=== PATIENT | female | born 1950 | race Caucasian/White ===

== ENCOUNTER → 2016-09-04 | Day surgery (SDC) | payer BC, MEDICARE ==
[2016-09-02 14:13] VITALS: BMI 30.2
[~2016-09-04] MED LIST: LACTATED RINGERS 1,000 ML IV SCH; LIDOCAINE 1% INJ 10MG/ML (20 ML MDV) ONE; PROPOFOL 10 MG/ML 20 ML VIAL IV ONE; ePHEDrine 50 MG/ML 1 ML AMP ONE
[2016-09-04 09:19] VITALS: RESP 16; TEMP 97.9
--- NOTE | 2016-09-04 10:17 | P.GSHP ---
History of Present Illness H&P Date: 09/04/16 Chief Complaint: GERD, screening colonoscopy This is a 65-year-old female for from Dr. Flaquito Stanford. Patient is today for EGD and screening colonoscopy. She's had issues with GERD. She's never had a colonoscopy before. Past Medical History Past Medical History: COPD, GERD/Reflux, Hyperlipidemia, Hypertension, Osteoarthritis (OA) Additional Past Medical History / Comment(s): HEART MURMUR, HX OF "DUODENAL ULCER" , ARTHRITIS WITH BACK PAIN., History of Any Multi-Drug Resistant Organisms: None Reported Past Surgical History: Section Additional Past Surgical History / Comment(s): X3, RT KIDNEY REPAIR ( 27 YRS OLD), BILAT CATARACTS. SIGMOIDOSCOPY, EGD Past Anesthesia/Blood Transfusion Reactions: No Reported Reaction Smoking Status: Heavy tobacco smoker - Past Family History Mother Family Medical History: No Reported History Medications and Allergies Home Medications Medication Instructions Recorded Confirmed Type Gemfibrozil [Lopid] 600 mg PO BID 11/29/15 09/04/16 History Hydrocodone/Acetaminophen [Vicodin 1 tab PO Q8HR PRN 11/29/15 09/04/16 History Es 7.5-300 mg Tablet] Lisinopril-Hctz 20-12.5 mg 1 tab PO DAILY 11/29/15 09/04/16 History [Zestoretic 20-12.5] Omeprazole 40 mg PO DAILY 11/29/15 09/04/16 History Simvastatin [Zocor] 20 mg PO HS 11/29/15 09/04/16 History buPROPion XL [Wellbutrin Xl] 300 mg PO DAILY 11/29/15 09/04/16 History Allergies Allergy/AdvReac Type Severity Reaction Status Date / Time Penicillins Allergy Unknown Swelling Verified 09/04/16 09:14 Surgical - Exam Vital Signs Temp Pulse Resp BP Pulse Ox 97.9 F 79 16 95/63 96 09/04/16 09:17 09/04/16 09:17 09/04/16 09:17 09/04/16 09:17 09/04/16 09:17 - General well developed, no distress - Eyes PERRL - ENT normal pinna - Neck no masses - Respiratory normal expansion - Cardiovascular Rhythm: regular - Abdomen Abdomen: soft, non tender Assessment and Plan Plan: GERD. We'll perform EGD. We'll also perform initial screening colonoscopy.
--- NOTE | 2016-09-04 10:35 | P.OP ---
Date of Procedure: 09/04/16 Preoperative Diagnosis: GERD Screening colonoscopy Postoperative Diagnosis: Antral gastritis Small hiatal hernia Distal esophagitis Incomplete colonoscopy secondary to tortuosity bowel, normal rectum and distal sigmoid colon Procedure(s) Performed: Colonoscopy Implants: Anesthesia: MAC Surgeon: Duglas Man Pathology: other (Antrum, esophagus) Condition: stable Disposition: PACU Indications for Procedure: Operative Findings: Description of Procedure: The patient's placed on the endoscopy table in the lateral position. She received IV sedation. The gastroscope some placed oropharynx and passed into the esophagus into the stomach. The scope was then placed through the pylorus. First and second portion of the duodenum appeared normal. Scope was then brought back the antrum and this was mildly inflamed. A biopsies performed. Scope was unretroflexed and remainder of the stomach appeared normal. There was a small hiatal hernia. The GE junction was at 38 cm. The distal esophagus. Inflamed this area is biopsied. The proximal esophagus. Normal. Scope withdrawn for patient. Next digital rectal exam was performed and the flexible colonoscope was then placed patient anus and passed into the rectum and into the distal sigmoid colon. The scope could not be passed beyond the distal sigmoid colon secondary to tortuosity valve. At this point the scope was withdrawn and a pediatric scope was placed the patient's colon however this was not able to pass the tight band of the sigmoid colon. At this point the scope was withdrawn. The remainder of the distal sigmoid colon and rectum appeared normal. Scope was withdrawn for patient. The patient was scheduled for a barium enema.
[2016-09-04 11:32] VITALS: BP 112/68; PULSE 72
--- NOTE | 2016-09-04 11:47 | XR ---
EXAMINATION TYPE: XR abdomen 1V DATE OF EXAM: 09/04/2016 COMPARISON: NONE HISTORY: Failed colonoscopy TECHNIQUE: One view abdominal series FINDINGS: The osseous structures are intact. The bowel gas pattern is nonspecific. Assessment for free air non diagnostic due to lack of inclusion of the entire upper abdomen. Arthropathy of the hips and degenera tive change of the spine. Vascular calcifications noted soft tissue ossification or calcification adj acent to the iliac bone.. IMPRESSION: 1. Nonspecific abdomen.
--- NOTE | 2016-09-04 13:59 | FL ---
EXAMINATION TYPE: FL barium enema DATE OF EXAM: 09/04/2016 COMPARISON: NONE HISTORY: Incomplete colonoscopy TECHNIQUE: A double contrast barium enema study is performed. FINDINGS: Equipment Installation Professional view of the abdomen shows overall non-obstructive bowel gas pattern. Exam is limited with regard to the right colon due to suboptimal bowel preparation. There is focal area of narrowing involving the sigmoid colon with severe diverticular disease. Additi onal areas of scattered diverticulosis are seen throughout the colon. Retained fecal debris limits as sessment for small polyps. No evidence of obstruction. No annular constricting lesion. Appendix was filled and appeared normal. IMPRESSION: 1. Limited exam due to suboptimal bowel preparation. Assessment for small polyps nondiagnostic. A loc alized area of narrowing of the sigmoid colon with severe changes of diverticular disease. Correlate clinically.
== END ==
LOC: ORWHC2ENDO 09:03
PROVIDERS: ATTEND Surgery
DX: Z12.11 Encounter for screening for malignant neoplasm of colon (principal); Q43.8 Other specified congenital malformations of intestine; K29.50 Unspecified chronic gastritis without bleeding; K21.0 Gastro-esophageal reflux disease with esophagitis; K44.9 Diaphragmatic hernia without obstruction or gangrene; K57.30 Diverticulosis of large intestine without perforation or abscess without bleeding; J44.9 Chronic obstructive pulmonary disease, unspecified; E78.5 Hyperlipidemia, unspecified; I10 Essential (primary) hypertension; M19.90 Unspecified osteoarthritis, unspecified site; F17.200 Nicotine dependence, unspecified, uncomplicated; Z79.899 Other long term (current) drug therapy; Z88.0 Allergy status to penicillin
CPT/HCPCS: 88305; 88342; 74270; 74000; 43239; 45330; J2001; J2704

== ENCOUNTER → 2016-10-02 | Outpatient (CLI) | payer BC, MEDICARE ==
[2016-10-02 11:54] LABS: EKG EKG PERFORMED
[2016-10-02 12:14] LABS: Anisocytosis Slight; CH 26.4; HCT 35.5 % (34.0-46.0); HDW 2.91; HGB 10.7 gm/dL (11.4-16.0); Hypochromasia Marked; MCH 26.6 pg (25.0-35.0); MCHC 30.1 g/dL (31.0-37.0); MCV 88.2 fL (80.0-100.0); Mean Platelet Volume 7.1; RBC 4.03 m/uL (3.80-5.40); RDW 17.9 % (11.5-15.5); WBC 6.9 k/uL (3.8-10.6)
[2016-10-02 12:34] LABS: Anion Gap 13 mmol/L; Carbon Dioxide 20 mmol/L (22-30); Chloride 106 mmol/L (98-107); Potassium 4.1 mmol/L (3.5-5.1); Sodium 139 mmol/L (137-145)
== END | disposition home or self-care (01) ==
LOC: LABPAT 11:45
PROVIDERS: ATTEND Surgery
DX: Z01.810 Encounter for preprocedural cardiovascular examination (principal); I10 Essential (primary) hypertension; K57.90 Diverticulosis of intestine, part unspecified, without perforation or abscess without bleeding
CPT/HCPCS: 80051; 85027; 86850; 86900; 86901; 93005

== ENCOUNTER 2016-10-09 10:35 | Inpatient (IN) | payer BC, MEDICARE ==
[2016-09-30 10:56] VITALS: BMI 21.9
[~2016-10-09 10:35] MED LIST changes: +CLINDAMYCIN 900 MG in DEXTROSE 5% IN WATER 50 ML IVPB ONE; +DEXAMETHASONE SOD PHOSPHATE 10 MG/ML 1 ML VIAL IV ONE; +GENTAMICIN 240 MG in SODIUM CHLORIDE 0.9% 100 ML IVPB ONE; +HEPARIN SODIUM,PORCINE 5,000 UNIT/ML 1 ML VIAL SQ ONE; +HYDROmorphone 1 MG/ML 1 ML SYRINGE IVP PRN; -LACTATED RINGERS 1,000 ML IV SCH; -LIDOCAINE 1% INJ 10MG/ML (20 ML MDV) ONE; +MIDAZOLAM 2 MG/2 ML VIAL IV PRN; +ONDANSETRON 4 MG/2 ML VIAL IVP ONE; -PROPOFOL 10 MG/ML 20 ML VIAL IV ONE; -ePHEDrine 50 MG/ML 1 ML AMP ONE
[2016-10-09] MEDS: LACTATED RINGERS 1,000 ML IV SCH (12:26)
--- NOTE | 2016-10-09 12:27 | P.GSHP ---
History of Present Illness H&P Date: 10/09/16 Chief Complaint: Diverticulitis This is a 58-year-old female who's had chronic issues with diverticulitis. Patient presents today for low anterior resection. She is aware the risks of surgery including wound infection, colostomy Past Medical History Past Medical History: COPD, GERD/Reflux, Hyperlipidemia, Hypertension, Musculoskeletal Disorder, Osteoarthritis (OA) Additional Past Medical History / Comment(s): HEART MURMUR. HX OF "DUODENAL ULCER." DIVERTICULITIS. CHRONIC BACK PAIN. HX DB KIDNEY, 1 REMOVED. History of Any Multi-Drug Resistant Organisms: None Reported Past Surgical History: Section Additional Past Surgical History / Comment(s): X3. RT KIDNEY REPAIR ( 27 YRS OLD). BILAT CATARACTS. SIGMOIDOSCOPY, EGD Past Anesthesia/Blood Transfusion Reactions: No Reported Reaction Smoking Status: Current every day smoker - Past Family History Mother Family Medical History: No Reported History Medications and Allergies Home Medications Medication Instructions Recorded Confirmed Type Gemfibrozil [Lopid] 600 mg PO BID 11/29/15 10/09/16 History Hydrocodone/Acetaminophen [Vicodin 1 tab PO Q8HR PRN 11/29/15 10/09/16 History Es 7.5-300 mg Tablet] Lisinopril-Hctz 20-12.5 mg 1 tab PO DAILY 11/29/15 10/09/16 History [Zestoretic 20-12.5] Omeprazole 40 mg PO DAILY 11/29/15 10/09/16 History Simvastatin [Zocor] 20 mg PO HS 11/29/15 10/09/16 History buPROPion XL [Wellbutrin Xl] 300 mg PO DAILY 11/29/15 10/09/16 History Albuterol Sulfate [Proventil Hfa] 1 - 2 puff INHALATION Q6HR PRN 09/30/16 History Krill/Om-3/Dha/Epa/Phospho/Ast 1 each PO DAILY 09/30/16 10/09/16 History [[place]-3 Krill Oil 300 mg Sfgl] Pseudoephedrine [Sudafed] 30 - 60 mg PO Q4H PRN 09/30/16 10/09/16 History Allergies Allergy/AdvReac Type Severity Reaction Status Date / Time Penicillins Allergy Unknown Swelling Verified 09/30/16 10:19 Surgical - Exam Vital Signs Temp Pulse Resp BP Pulse Ox 98.4 F 85 20 141/69 100 10/09/16 12:07 10/09/16 12:07 10/09/16 12:07 10/09/16 12:07 10/09/16 12:07 - General well developed, no distress - Eyes PERRL - ENT normal pinna - Neck no masses - Respiratory normal expansion - Cardiovascular Rhythm: regular - Abdomen Abdomen: soft, non tender Assessment and Plan Plan: Diverticulitis. We will perform a low anterior resection
[2016-10-09] MEDS ORDERED: fentaNYL (PF) 50 MCG/ML 2 ML AMP IV ONE (12:40)
[2016-10-09] MEDS ORDERED: NALOXONE 0.4 MG/ML 1 ML VIAL IV PRN (12:54)
[2016-10-09] MEDS ORDERED: GLYCOPYRROLATE 0.2 MG/ML 2 ML VIAL ONE (13:18)
[2016-10-09] MEDS ORDERED: PHENYLEPHRINE-0.9% NACL SYG 1 MG/10 ML SYRINGE ONE (13:18)
[2016-10-09] MEDS ORDERED: ROCURONIUM BROMIDE 10 MG/ML 10 ML VIAL IV ONE (13:18)
[2016-10-09] MEDS ORDERED: fentaNYL (PF) 50 MCG/ML 2 ML AMP ONE (13:18)
[2016-10-09] MEDS ORDERED: NEOSTIGMINE 1 MG/ML 10 ML VIAL ONE (13:18)
[2016-10-09] MEDS ORDERED: PROPOFOL 10 MG/ML 20 ML VIAL IV ONE (13:18)
[2016-10-09] MEDS ORDERED: LIDOCAINE 1% INJ 10MG/ML (20 ML MDV) ONE (13:18)
[2016-10-09] MEDS ORDERED: SUCCINYLCHOLINE CHLORIDE 100 MG/5 ML SYR IV ONE (13:18)
[2016-10-09] MEDS ORDERED: MIDAZOLAM 2 MG/2 ML VIAL ONE (13:18)
[2016-10-09] MEDS ORDERED: LACTATED RINGERS 1,000 ML IV ONE (14:13)
[2016-10-09] MEDS ORDERED: BENZOCAINE/MENTHOL LOZENG 1 EACH LOZENGE MUCOUS MEM PRN (14:22)
[2016-10-09] MEDS ORDERED: ONDANSETRON 4 MG/2 ML VIAL IVP PRN (14:22)
[2016-10-09] MEDS: BUPIVACAINE (PF) 0.5% 37.5 ML, HYDROMORPHONE (PF) 5 MG in SODIUM CHLORIDE 0.9% 212 ML EPIDURAL PRN (14:40)
[2016-10-09] MEDS ORDERED: HYDROmorphone 1 MG/ML 1 ML SYRINGE IVP ONE ×2 (15:10→15:18)
[2016-10-09 17:18] LABS: Anisocytosis Slight; Basophils % (A) 0 %; CH 25.5; CHCM 29.2; Eosinophils # (A) 0.1 k/uL (0-0.7); Eosinophils % (A) 1 %; HCT 34.2 % (34.0-46.0); HDW 2.84; HGB 10.4 gm/dL (11.4-16.0); Hypochromasia Marked; Luc # (Auto) 0.09; Luc % (Auto) 1; Lymphocytes # (A) 0.7 k/uL (1.0-4.8); Lymphocytes % (A) 7 %; MCH 26.6 pg (25.0-35.0); MCHC 30.4 g/dL (31.0-37.0); MCV 87.5 fL (80.0-100.0); Mean Platelet Volume 6.7; Monocytes # (A) 0.3 k/uL (0-1.0); Monocytes % (A) 3 %; Neutrophils # (A) 8.4 k/uL (1.3-7.7); Neutrophils % (A) 88 %; RBC 3.91 m/uL (3.80-5.40); RDW 16.9 % (11.5-15.5); WBC 9.5 k/uL (3.8-10.6); WBC (Perox) 10.17
[2016-10-09 17:20] LABS: Anion Gap 11 mmol/L; Blood Urea Nitrogen 8 mg/dL (7-17); Calcium 8.9 mg/dL (8.4-10.2); Carbon Dioxide 18 mmol/L (22-30); Chloride 105 mmol/L (98-107); Glucose 90 mg/dL (74-99); Non-African American GFR(MDRD) >60 (>60 ml/min/1.73 sqM); Potassium 3.9 mmol/L (3.5-5.1); Sodium 134 mmol/L (137-145)
[2016-10-09] MEDS: HEPARIN SODIUM,PORCINE 5,000 UNIT/ML 1 ML VIAL SQ SCH (17:45)
[2016-10-09] MEDS: HYDROmorphone 1 MG/ML 1 ML SYRINGE IVP PRN ×2 (17:46→21:50)
[2016-10-09] MEDS: D5-0.45% NACL WITH KCL 20MEQ/L 1,000 ML IV SCH (17:46)
[2016-10-09] MEDS: NICOTINE 21MG/24HR PATCH TRANSDERM SCH (18:27)
[2016-10-09] MEDS: GEMFIBROZIL 600 MG TAB PO SCH (21:50)
[2016-10-09] MEDS: ATORVASTATIN 10 MG TAB PO SCH (21:50)
[2016-10-10] MEDS ORDERED: SODIUM CHLORIDE 0.9% 500 ML IV ONE (00:54)
[2016-10-10] MEDS: HEPARIN SODIUM,PORCINE 5,000 UNIT/ML 1 ML VIAL SQ SCH ×4 (01:00→16:25)
[2016-10-10] MEDS: D5-0.45% NACL WITH KCL 20MEQ/L 1,000 ML IV SCH ×3 (02:32→20:43)
[2016-10-10] MEDS: LACTATED RINGERS 1,000 ML IV SCH (02:51)
[2016-10-10] MEDS: HYDROcodone/APAP 7.5-325MG 1 EACH TAB PO PRN ×2 (08:23→16:16)
[2016-10-10] MEDS: NICOTINE 21MG/24HR PATCH TRANSDERM SCH (08:24)
[2016-10-10] MEDS: ALVIMOPAN 12 MG CAPSULE PO SCH ×2 (08:24→21:42)
[2016-10-10] MEDS: GEMFIBROZIL 600 MG TAB PO SCH ×2 (08:24→21:43)
[2016-10-10] MEDS ORDERED: SODIUM CHLORIDE 0.9% 1,000 ML IV ONE (09:05)
--- NOTE | 2016-10-10 11:40 | P.PN ---
Progress Note - Text The patient underwent the low anterior resection for complicated diverticular disease by Dr. Mock yesterday. Has been having trouble with blood pressure management. The low blood pressures probably related to her epidural and analgesia. Her systolic blood pressure is in the high 80s. She is otherwise asymptomatic. No dizziness. She is awake alert. She is tolerating a liquid diet. Not tachycardic. No fever. Abdomen is soft usual postoperative tenderness.. No guarding or rebound. Hemoglobin is satisfactory with no evidence of excessive bleeding. Impression. Mild hypotension probably related to analgesia. Recommendation. Her epidural be adjusted. We will hold the IV Dilaudid. Add Toradol. . Increase diet. Closely monitor her vitals.
[2016-10-10] MEDS: KETOROLAC 30 MG/ML 1 ML VIAL IVP PRN ×2 (14:09→20:40)
[2016-10-10] MEDS: MAG HYDROX/AL HYDROX/SIMETH 30 ML CUP PO PRN (16:59)
--- NOTE | 2016-10-10 21:32 | P.PN ---
Progress Note - Text Post op day one, status post lower anterior resection, the ureteral catheter for postop analgesia, she is on continuous infusion of bupivacaine/Dilaudid at 8 mL per hour, she is slightly hypotensive, pressure is in the 80s, she has left lower extremity numbness, for this reason I will decrease the infusion to 6 mL per hour, and patient and he currently hydrated,, reevaluate tomorrow morning
[2016-10-10] MEDS: ATORVASTATIN 10 MG TAB PO SCH (21:43)
--- NOTE | 2016-10-10 23:07 | P.CONS ---
History of Present Illness - Reason for Consult Consult date: 10/10/16 Medical management of hypertension hyperlipidemia and postoperative care - Chief Complaint Coronary dissection status post due to diverticulosis - History of Present Illness Patient is a 66-year-old female with a known history of hypertension, hyperlipidemia, COPD and multiple other medical problems was admitted to the hospital for low anterior resection of colon for complicated diverticulosis. Patient tolerated the procedure well. Postoperatively patient became hypotensive with SBP around 80 mmHg. Espinal patient is awake alert oriented 3. No, was of chest pain more short of breath. No, some dizziness or lightheadedness. No nausea vomiting. Abdominal pain is better. Review of Systems CONSTITUTIONAL: No fever, no malaise, no fatigue. HEENT: No recent visual problems or hearing problems. Denied any sore throat. CARDIOVASCULAR: No chest pain, orthopnea, PND, no palpitations, no syncope. PULMONARY: , no hemoptysis. GASTROINTESTINAL: No diarrhea, no nausea, no vomiting, pain at surgical site. Normoactive bowel sounds. NEUROLOGICAL: No headaches, no weakness, no numbness. HEMATOLOGICAL: Denies any bleeding or petechiae. GENITOURINARY: Denies any burning micturition, frequency, or urgency. MUSCULOSKELETAL/RHEUMATOLOGICAL: Denies any joint pain, swelling, or any muscle pain. ENDOCRINE: Denies any polyuria or polydipsia. The rest of the 14-point review of systems is negative. Past Medical History Past Medical History: COPD, GERD/Reflux, Hyperlipidemia, Hypertension, Musculoskeletal Disorder, Osteoarthritis (OA) Additional Past Medical History / Comment(s): HEART MURMUR. HX OF "DUODENAL ULCER." DIVERTICULITIS. CHRONIC BACK PAIN. HX DB KIDNEY, 1 REMOVED. History of Any Multi-Drug Resistant Organisms: None Reported Past Surgical History: Section Additional Past Surgical History / Comment(s): X3. RT KIDNEY REPAIR ( 27 YRS OLD). BILAT CATARACTS. SIGMOIDOSCOPY, EGD Past Anesthesia/Blood Transfusion Reactions: No Reported Reaction Smoking Status: Current every day smoker - Past Family History Mother Family Medical History: No Reported History Medications and Allergies Home Medications Medication Instructions Recorded Confirmed Type Gemfibrozil [Lopid] 600 mg PO BID 11/29/15 10/09/16 History Hydrocodone/Acetaminophen [Vicodin 1 tab PO Q8HR PRN 11/29/15 10/09/16 History Es 7.5-300 mg Tablet] Lisinopril-Hctz 20-12.5 mg 1 tab PO DAILY 11/29/15 10/09/16 History [Zestoretic 20-12.5] Omeprazole 40 mg PO DAILY 11/29/15 10/09/16 History Simvastatin [Zocor] 20 mg PO HS 11/29/15 10/09/16 History buPROPion XL [Wellbutrin Xl] 300 mg PO DAILY 11/29/15 10/09/16 History Albuterol Sulfate [Proventil Hfa] 1 - 2 puff INHALATION RT-QID PRN 09/30/16 History Krill/Om-3/Dha/Epa/Phospho/Ast 1 cap PO DAILY 09/30/16 10/09/16 History [[place]-3 Krill Oil 300 mg Sfgl] Pseudoephedrine [Sudafed] 30 - 60 mg PO Q4H PRN 09/30/16 10/09/16 History Allergies Allergy/AdvReac Type Severity Reaction Status Date / Time Penicillins Allergy Unknown Swelling Verified 10/09/16 14:31 Physical Exam Vitals: Vital Signs Temp Pulse Pulse Resp BP BP Pulse Ox 10/10/16 15:15 98.1 F 81 16 99/44 81 L 10/10/16 08:16 98.3 F 18 83/56 96 10/10/16 08:00 78 68 18 10/10/16 06:32 78 89/44 10/10/16 04:38 78 82/48 10/10/16 01:30 72/40 10/10/16 01:29 98.1 F 71 16 71/37 96 10/10/16 01:00 72/42 Intake and Output 10/10/16 10/10/16 10/10/16 06:59 14:59 22:59 Intake Total 3090 Output Total 500 1600 Balance 2590 -1600 Intake: Intake, IV Titration 2000 Amount D5-0.45% NaCl with KCl 1500 20Meq/l 1,000 ml @ 125 mls/hr IV .Q8H [facility] Rx#: [id number] Sodium Chloride 0.9% 500 500 ml @ 500 mls/hr IV .Q1H ONE Rx#:[id number] Oral 1090 Output: Urine 500 1600 Other: # Voids 2 2 Weight 52.617 kg Patient Weight 10/11/16 06:59 Weight 52.617 kg PHYSICAL EXAMINATION: Patient is lying in the bed comfortably, no acute distress, awake alert and oriented.. HEENT: Normocephalic. Neck is supple. Pupils reactive. Nostrils clear. Oral cavity is moist. Ears reveal no drainage. Neck reveals no JVD, carotid bruits, or thyromegaly. CHEST EXAMINATION: Trachea is central. Symmetrical expansion. Lung vallejo clear to auscultation and percussion. CARDIAC: Normal S1, S2 with no gallops. No murmurs ABDOMEN: Soft. Bowel sounds normal. No organomegaly. No abdominal bruits. Mild tenderness of the surgical site. Surgical site intact skin Extremities reveal no edema. No clubbing or cyanosis Neurologically awake, alert, oriented x3 with well-coordinated movements. Skin: no rash or skin lesions Musculoskeletal: no joint swelling or deformity. e. Results CBC & Chem 7: 10/09/16 16:49 10/09/16 16:49 Labs: Abnormal Lab Results - Last 24 Hours (Table) 10/09/16 10/09/16 Range/Units 16:49 16:49 Hgb 10.4 L (11.4-16.0) gm/dL MCHC 30.4 L (31.0-37.0) g/dL RDW 16.9 H (11.5-15.5) % Neutrophils # 8.4 H (1.3-7.7) k/uL Lymphocytes # 0.7 L (1.0-4.8) k/uL Sodium 134 L (137-145) mmol/L Carbon Dioxide 18 L (22-30) mmol/L Assessment and Plan Plan: Impression #1 status post low anterior resection of colon due to complicated diverticular disease #2 hypotension likely due to analgesia. Continue with the IV hydration #3 history of hypertension. We'll hold blood pressure medications #4 hyperlipidemia #5 osteoarthritis #6 GERD #7 COPD stable Plan: Patient recorded on IV hydration and hold blood pressure medications. Limit narcotic pain medication use. Continue with the current home medications and breathing treatments as needed. We'll follow closely further recommendations based on the clinical course. Continue DVT prophylaxis with heparin subcu. Thank you for your consult
[2016-10-11] MEDS: MAG HYDROX/AL HYDROX/SIMETH 30 ML CUP PO PRN ×3 (00:04→14:14)
[2016-10-11] MEDS: HEPARIN SODIUM,PORCINE 5,000 UNIT/ML 1 ML VIAL SQ SCH ×4 (00:19→23:17)
[2016-10-11] MEDS: NICOTINE 21MG/24HR PATCH TRANSDERM SCH (07:14)
[2016-10-11] MEDS: KETOROLAC 30 MG/ML 1 ML VIAL IVP PRN ×3 (07:14→20:53)
[2016-10-11] MEDS: ALVIMOPAN 12 MG CAPSULE PO SCH ×2 (07:14→20:51)
[2016-10-11] MEDS: D5-0.45% NACL WITH KCL 20MEQ/L 1,000 ML IV SCH ×3 (07:15→20:47)
[2016-10-11] MEDS: GEMFIBROZIL 600 MG TAB PO SCH ×2 (07:15→20:50)
--- NOTE | 2016-10-11 12:42 | P.PN ---
Progress Note - Text The patient is coming along well status post the sigmoid resection. She is hungry for more solid food. Did have some liquid bowel movements yesterday. Pain control is better. Still on the epidural. On examination the patient is well-built both afebrile vitals are stable in no distress. Abdomen is soft. The minimal tenderness. No evidence of any complication. Some bloody discharge on her bandage. Impression progressive improvement. Recommendation we'll advance her to a soft diet the. Continued monitoring. Hopefully discharge in the next day or 2.
[2016-10-11] MEDS: HYDROcodone/APAP 7.5-325MG 1 EACH TAB PO PRN (17:08)
--- NOTE | 2016-10-11 20:27 | P.PN ---
Progress Note - Text Postop day 2 status post sigmoid resection, epidural analgesia, patient currently on combination of effusion bupivacaine/Dilaudid at 6 mL per hour, the weakness in her left lower extremity improved, after we decreased the infusion from 8 mL per hour to 6 and metoprolol, epidural dressing, was changed because there was some leakage of fluid, patient had no motor deficits at this point, visual analog scale 5/10 and patient using breakthrough medicatios, continue the same management
[2016-10-11] MEDS: ATORVASTATIN 10 MG TAB PO SCH (20:50)
--- NOTE | 2016-10-12 00:59 | P.PN ---
Subjective Principal diagnosis: Colon resection due to diverticulosis Patient is a 66-year-old female with a known history of hypertension, hyperlipidemia, COPD and multiple other medical problems was admitted to the hospital for low anterior resection of colon for complicated diverticulosis. Patient tolerated the procedure well. Postoperatively patient became hypotensive with SBP around 80 mmHg. Espinal patient is awake alert oriented 3. No, was of chest pain more short of breath. No, some dizziness or lightheadedness. No nausea vomiting. Abdominal pain is better. 10/11/2016 Patient is comfortable and denied any worsening abdominal pain. Patient is able to pass status and had small bowel movement. Tolerating diet. No fever no chills no chest pain or shortness of breath. No acute overnight issues. Objective - Vital Signs Vital signs: Vital Signs Temp 97.5 F L 10/11/16 15:03 Pulse 87 10/11/16 16:00 Resp 16 10/11/16 16:00 BP 119/58 10/11/16 15:03 Pulse Ox 94 L 10/11/16 15:03 Intake & Output 10/11/16 10/11/16 10/12/16 06:59 18:59 06:59 Intake Total 775 1300 Output Total 1200 2000 Balance -425 -700 Weight 52.617 kg Intake: Intake, IV Titration 375 800 Amount D5-0.45% NaCl with KCl 375 800 20Meq/l 1,000 ml @ 125 mls/hr IV .Q8H [facility] Rx#: [id number] Oral 400 500 Output: Urine 1200 2000 Uretheral (Gray) 600 Other: Voiding Method Indwelling Catheter Indwelling Catheter # Voids 2 2 # Bowel Movements 2 - Exam PHYSICAL EXAMINATION: Patient is lying in the bed comfortably, no acute distress, awake alert and oriented.. HEENT: Normocephalic. Neck is supple. Pupils reactive. Nostrils clear. Oral cavity is moist. Ears reveal no drainage. Neck reveals no JVD, carotid bruits, or thyromegaly. CHEST EXAMINATION: Trachea is central. Symmetrical expansion. Lung vallejo clear to auscultation and percussion. CARDIAC: Normal S1, S2 with no gallops. No murmurs ABDOMEN: Soft. Bowel sounds normal. No organomegaly. No abdominal bruits. Mild tenderness of the surgical site. Surgical site intact skin Extremities reveal no edema. No clubbing or cyanosis Neurologically awake, alert, oriented x3 with well-coordinated movements. Skin: no rash or skin lesions Musculoskeletal: no joint swelling or deformity. - Labs CBC & Chem 7: 10/09/16 16:49 10/09/16 16:49 Assessment and Plan Plan: Impression #1 status post low anterior resection of colon due to complicated diverticular disease #2 hypotension likely due to analgesia. Continue with the IV hydration #3 history of hypertension. We'll hold blood pressure medications #4 hyperlipidemia #5 osteoarthritis #6 GERD #7 COPD stable Plan: Patient will be continued on IV hydration and hold blood pressure medications. Patient is tolerating liquid diet and had a bowel movement. Limit narcotic pain medication use. Continue with the current home medications and breathing treatments as needed. We'll follow closely further recommendations based on the clinical course. Continue DVT prophylaxis with heparin subcu. Thank you for your consult
[2016-10-12] MEDS: BUPIVACAINE (PF) 0.5% 37.5 ML, HYDROMORPHONE (PF) 5 MG in SODIUM CHLORIDE 0.9% 212 ML EPIDURAL PRN (03:18)
[2016-10-12] MEDS: D5-0.45% NACL WITH KCL 20MEQ/L 1,000 ML IV SCH (04:09)
[2016-10-12 07:37] LABS: Anisocytosis Slight; Basophils % (A) 0 %; CH 26.4; CHCM 29.5; Eosinophils # (A) 0.7 k/uL (0-0.7); Eosinophils % (A) 6 %; HCT 29.9 % (34.0-46.0); HDW 2.99; Hypochromasia Marked; Luc # (Auto) 0.38; Luc % (Auto) 4; Lymphocytes # (A) 1.9 k/uL (1.0-4.8); Lymphocytes % (A) 17 %; MCV 89.9 fL (80.0-100.0); Mean Platelet Volume 7.4; Monocytes # (A) 0.9 k/uL (0-1.0); Monocytes % (A) 8 %; Neutrophils % (A) 65 %; RBC 3.33 m/uL (3.80-5.40); RDW 18.1 % (11.5-15.5); WBC 10.9 k/uL (3.8-10.6); WBC (Perox) 11.37
[2016-10-12 07:38] LABS: Anion Gap 7 mmol/L; Blood Urea Nitrogen 5 mg/dL (7-17); Carbon Dioxide 22 mmol/L (22-30); Chloride 109 mmol/L (98-107); Glucose 78 mg/dL (74-99); Non-African American GFR(MDRD) >60 (>60 ml/min/1.73 sqM); Potassium 5.2 mmol/L (3.5-5.1); Sodium 138 mmol/L (137-145)
[2016-10-12 08:05] LABS: HGB 8.7 gm/dL (11.4-16.0)
[2016-10-12] MEDS: NICOTINE 21MG/24HR PATCH TRANSDERM SCH (09:23)
[2016-10-12] MEDS: HYDROcodone/APAP 7.5-325MG 1 EACH TAB PO PRN (09:23)
[2016-10-12] MEDS: HEPARIN SODIUM,PORCINE 5,000 UNIT/ML 1 ML VIAL SQ SCH (09:24)
[2016-10-12] MEDS: GEMFIBROZIL 600 MG TAB PO SCH (09:24)
[2016-10-12] MEDS: ALVIMOPAN 12 MG CAPSULE PO SCH (09:24)
[2016-10-12] MEDS: KETOROLAC 30 MG/ML 1 ML VIAL IVP PRN (09:45)
[2016-10-12] MEDS ORDERED: HYDROmorphone 1 MG/ML 1 ML SYRINGE IVP PRN (10:01)
--- NOTE | 2016-10-12 10:12 | P.PN ---
<Ankita Garcia M - Last Filed: 10/12/16 10:15> Subjective 66-year-old female being seen on rounds this morning. Patient states she's tolerating her diet. The diet has been advanced to soft. Patient states she had loose stool liquid yesterday. Patient states she's passing gas rectally. Patient states pain medication has been effective for pain control patient is denying dizziness lightheadedness shortness of breath or chest pain when questioning Patient is postop low anterior resection for a complicated diverticular disease done on the 09 of October. Patient has had chronic issues with diverticulitis. Postop systolic blood pressure was in the 80s did receive a fluid bolus current vitals blood pressure 121/75 afebrile heart rate in the 80s Objective - Vital Signs Vital signs: Vital Signs Temp 97.4 F L 10/12/16 07:13 Pulse 80 10/12/16 07:13 Resp 15 10/12/16 08:00 BP 121/75 10/12/16 07:13 Pulse Ox 95 10/12/16 07:13 Intake & Output 10/11/16 10/12/16 10/12/16 18:59 06:59 18:59 Intake Total 1300 1393 Output Total 2000 Balance -700 1393 Weight 52.617 kg Intake: Intake, IV Titration 800 1393 Amount Bupivacaine (Pf) 0.5% 37. 18 5 ml Hydromorphone (Pf) 5 mg In Sodium Chloride 0. 9% 212 ml @ Per Protocol EPIDURAL .Q0M PRN Rx#: [id number] D5-0.45% NaCl with KCl 800 1375 20Meq/l 1,000 ml @ 125 mls/hr IV .Q8H [facility] Rx#: [id number] Oral 500 Output: Urine 2000 Uretheral (Gray) 600 Other: Voiding Method Indwelling Catheter Toilet Toilet # Voids 2 1 # Bowel Movements 2 - Exam GENERAL APPEARANCE: 66-year-old female patient is alert, oriented, in no acute distress. Sitting up in bed appears in no acute distress VITAL SIGNS: Reviewed HEENT: Head is normocephalic and atraumatic. Pupils are equal and reactive. The nares are patent. Oropharynx is clear without lesions. NECK: Supple without lymphadenopathy. Traches midline. HEART: S1, S2. Regular rate and rhythm. Denying chest pain LUNGS: No crackles or wheezes are heard. On room air sats are 95% no cough noted ABDOMEN: Soft, slight surgical tenderness nondistended with good bowel sounds. No peritoneal signs. No palpable organomegaly or masses. Reports no nausea vomiting states urinating no difficulty dressing to the surgical site dry EXTREMITIES: Normal skin color and turgor. No cyanosis, rash, ulceration, clubbing or edema. Radial pedal pulses are 2/4 bilaterally. NEUROLOGICAL: No focal deficits. Strength and sensation are grossly intact. - Labs CBC & Chem 7: 10/12/16 06:37 10/12/16 06:37 Labs: Abnormal Lab Results - Last 24 Hours (Table) 10/12/16 10/12/16 Range/Units 06:37 06:37 WBC 10.9 H (3.8-10.6) k/uL RBC 3.33 L (3.80-5.40) m/uL Hgb 8.7 L D (11.4-16.0) gm/dL Hct 29.9 L (34.0-46.0) % MCHC 29.0 L (31.0-37.0) g/dL RDW 18.1 H (11.5-15.5) % Potassium 5.2 H (3.5-5.1) mmol/L Chloride 109 H (98-107) mmol/L BUN 5 L (7-17) mg/dL Assessment and Plan Plan: Impression History of diverticulitis disease Status post October 09 low anterior resection for complicated diverticular disease Mild hypotension postop likely related to analgesics resolved Current every day smoker COPD with no evidence of exacerbation Postop mild hyperkalemia Plan Continue postop surgical care Pain control start oral [place] Increase activity DVT and GI prophylaxis Soft diet as tolerated Decrease IV fluid 75 an hour Probable discharge in the next 24-48 hours The above impression and plan of care have been discussed and directed by signing physician. Ankita Garcia nurse practitioner acting as scribe for signing physician. <Alejandro Gibbs - Last Filed: 10/12/16 14:50> Objective - Vital Signs Vital signs: Vital Signs Temp 97.4 F L 10/12/16 07:13 Pulse 80 10/12/16 07:13 Resp 15 10/12/16 08:00 BP 121/75 10/12/16 07:13 Pulse Ox 95 08/21/17 07:13 Intake & Output 10/11/16 10/12/16 10/12/16 18:59 06:59 18:59 Intake Total 1300 1393 Output Total 2000 Balance -700 1393 Weight 52.617 kg Intake: Intake, IV Titration 800 1393 Amount Bupivacaine (Pf) 0.5% 37. 18 5 ml Hydromorphone (Pf) 5 mg In Sodium Chloride 0. 9% 212 ml @ Per Protocol EPIDURAL .Q0M PRN Rx#: [id number] D5-0.45% NaCl with KCl 800 1375 20Meq/l 1,000 ml @ 125 mls/hr IV .Q8H [facility] Rx#: [id number] Oral 500 Output: Urine 2000 Uretheral (Gray) 600 Other: Voiding Method Indwelling Catheter Toilet Toilet # Voids 2 1 # Bowel Movements 2 - Labs CBC & Chem 7: 10/12/16 06:37 10/12/16 06:37 Labs: Abnormal Lab Results - Last 24 Hours (Table) 10/12/16 10/12/16 Range/Units 06:37 06:37 WBC 10.9 H (3.8-10.6) k/uL RBC 3.33 L (3.80-5.40) m/uL Hgb 8.7 L D (11.4-16.0) gm/dL Hct 29.9 L (34.0-46.0) % MCHC 29.0 L (31.0-37.0) g/dL RDW 18.1 H (11.5-15.5) % Potassium 5.2 H (3.5-5.1) mmol/L Chloride 109 H (98-107) mmol/L BUN 5 L (7-17) mg/dL Assessment and Plan Plan: Patient doing quite well today. She is tolerating her diet. She is asking to be discharged today. Will plan discharge at this time with outpatient follow- up by Dr. Man in 1 week.
[2016-10-12] MEDS ORDERED: HYDROcodone/APAP 7.5-325MG 1 EACH TAB PO PRN (10:14)
[2016-10-12] MEDS ORDERED: SODIUM CHLORIDE 0.9% 1,000 ML IV SCH (10:15)
[2016-10-12] MEDS: LACTATED RINGERS 1,000 ML IV SCH (10:43)
--- NOTE | 2016-10-12 12:30 | P.PN ---
Subjective Principal diagnosis: This a 66-year-old female seen this morning on rounds with Dr. Stanford. Patient has a history of diverticulitis and underwent a sigmoid colon resection by Dr. Hurtado on 10/09/2016. Patient states she is feeling well. Patient has been tolerating her diet without any nausea or vomiting. Patient states she is passing gas and also had a bowel movement this morning. Denies any chest pain or shortness of breath. Dressing to abdomen intact with mild sanguinous drainage. Patient is stable to be discharged from a medical standpoint. Objective - Vital Signs Vital signs: Vital Signs Temp 97.4 F L 10/12/16 07:13 Pulse 80 10/12/16 07:13 Resp 15 10/12/16 08:00 BP 121/75 10/12/16 07:13 Pulse Ox 95 10/12/16 07:13 Intake & Output 10/11/16 10/12/16 10/12/16 18:59 06:59 18:59 Intake Total 1300 1393 Output Total 2000 Balance -700 1393 Weight 52.617 kg Intake: Intake, IV Titration 800 1393 Amount Bupivacaine (Pf) 0.5% 37. 18 5 ml Hydromorphone (Pf) 5 mg In Sodium Chloride 0. 9% 212 ml @ Per Protocol EPIDURAL .Q0M PRN Rx#: [id number] D5-0.45% NaCl with KCl 800 1375 20Meq/l 1,000 ml @ 125 mls/hr IV .Q8H BART Rx#: [id number] Oral 500 Output: Urine 2000 Uretheral (Gray) 600 Other: Voiding Method Indwelling Catheter Toilet Toilet # Voids 2 1 # Bowel Movements 2 - Exam GENERAL: Alert and oriented. Appears in no acute distress. Pleasant. RESPIRATORY: Lungs clear bilaterally. No use of accessory muscles. Patient maintaining oxygen saturation greater than 92% on room air. CARDIOVASCULAR: S1 and S2 noted. No murmurs auscultated. No JVD noted. EXTREMITIES: No edema noted. Palpable pedal pulses +2. ABDOMEN: No distention noted. Abdomen soft and round. Normal active bowel sounds auscultated 4 quadrants. No pain or tenderness noted upon palpation. Dressing to lower abdomen intact with sanguinous drainage. - Labs CBC & Chem 7: 10/12/16 06:37 08/21/17 06:37 Labs: Abnormal Lab Results - Last 24 Hours (Table) 10/12/16 10/12/16 Range/Units 06:37 06:37 WBC 10.9 H (3.8-10.6) k/uL RBC 3.33 L (3.80-5.40) m/uL Hgb 8.7 L D (11.4-16.0) gm/dL Hct 29.9 L (34.0-46.0) % MCHC 29.0 L (31.0-37.0) g/dL RDW 18.1 H (11.5-15.5) % Potassium 5.2 H (3.5-5.1) mmol/L Chloride 109 H (98-107) mmol/L BUN 5 L (7-17) mg/dL Assessment and Plan (1) Diverticulitis Narrative/Plan: Status post colon resection on 10/09/2016 Status: Chronic (2) COPD (chronic obstructive pulmonary disease) Narrative/Plan: No evidence of exacerbation Status: Chronic (3) Hypotension Narrative/Plan: Following surgery, likely due to medications, has now resolved Current Visit: Yes Status: Resolved Plan: Continue postop surgical care as recommended by Dr. Man Continue to encourage encourage oral intake. Continue to encourage ambulation. DVT/GI prophylaxis Patient to begin on oral [place] today per surgery's recommendations Patient can be discharged from medical standpoint. The above impression and plan of care have been discussed and directed by signing physician. Nikia Winters, nurse practitioner, acting as scribe for signing physician.
[2016-10-12 15:01] VITALS: BP 133/56; PULSE 84; RESP 16; TEMP 98.5
--- NOTE | 2016-11-11 07:21 | P.OP ---
Date of Procedure: 10/09/16 Preoperative Diagnosis: diverticulitis Postoperative Diagnosis: diverticulitis Procedure(s) Performed: low anterior resection Anesthesia: RISHABH Surgeon: Duglas Man Estimated Blood Loss (ml): 20 Pathology: other (sigmoid colon) Condition: stable Disposition: PACU Description of Procedure: the patient was placed on the operative table in the supine position. She received general anesthesia. she was placed in dorsal lithotomy position.Her abdomen was prepped and draped in sterile fashion. The abdomen was entered through low midline incision.the Bookwalter surface wound. And the sigmoid colon was visualized. There is obvious diverticular disease in sigmoid colon. The white line of [place] was mobilized and the left colon and sigmoid colon was mobilized with the midline. A suitable spot on the descending colon was found and the colon was transected with the MARGUERITE stapler. Using the LigaSure device the mesentery of the colon was divided. Care was taken to identify and preserve the ureter. The dissection was taken down to the level of the rectum and then the rectum was transected with the contour stapler. The specimen was removed. A pursestring device applied to the proximal colon. And then the anvil for the 25 mm EEA stapler was placed into the colon and the pursestring was secured. The EEA stapler was then placed the patient's anus and into the rectum. The staple spike was driven through the staple line and the Sam connected. The stapler was then closed and fired and then withdrawn. 2 intact tissue rings were withdrawn. Using a hydro-nurse advocate the proximal bowel was occluded and then via a rigid sigmoidoscope and air was insufflated into the rectum. There was no evidence of extravasation of air at the staple line. The leak. At this point the abdomen was irrigated. The fascia was closed with looped #1 PDS suture. Skin school page. Patient tolerated well and was sent to recovery in stable condition.
== END 2016-10-12 18:39 | disposition home or self-care (01) | DRG 331 ==
LOC: 2ORWHC 10:35 → EDSTATUS 11:25 → 3SUR 14:55
PROVIDERS: ADMIT Surgery; ATTEND Surgery
PROC: 0DTN0ZZ Resection of Sigmoid Colon, Open Approach (ICD-10-PCS; principal; 2016-10-09 12:30)
DX: K57.32 Diverticulitis of large intestine without perforation or abscess without bleeding (principal); E87.5 Hyperkalemia; J44.9 Chronic obstructive pulmonary disease, unspecified; I10 Essential (primary) hypertension; E78.5 Hyperlipidemia, unspecified; F17.200 Nicotine dependence, unspecified, uncomplicated; K21.9 Gastro-esophageal reflux disease without esophagitis; M19.90 Unspecified osteoarthritis, unspecified site; Z79.899 Other long term (current) drug therapy; Z87.11 Personal history of peptic ulcer disease; Z88.0 Allergy status to penicillin; I95.2 Hypotension due to drugs; T41.0X5A Adverse effect of inhaled anesthetics, initial encounter
CPT/HCPCS: 80048; 85025; 86850; 86900; 86901; 88307

== ENCOUNTER 2016-11-23 15:11 | Emergency (ER) | payer BC, MEDICARE ==
[2016-11-23] MEDS ORDERED: MAG HYDROX/AL HYDROX/SIMETH 30 ML CUP PO PRN (16:28)
[2016-11-23] MEDS ORDERED: FAMOTIDINE 20 MG/2 ML VIAL IV STA (16:28)
[2016-11-23] MEDS ORDERED: LIDOCAINE VISCOUS 2% 15 ML CUP MUCOUS MEM ONE (16:28)
[2016-11-23 17:22] LABS: Anisocytosis Slight; Basophils % (A) 1 %; CH 26.5; CHCM 29.8; Eosinophils # (A) 0.3 k/uL (0-0.7); Eosinophils % (A) 4 %; HCT 37.1 % (34.0-46.0); HGB 11.2 gm/dL (11.4-16.0); Hypochromasia Marked; Luc # (Auto) 0.34; Luc % (Auto) 4; Lymphocytes # (A) 2.2 k/uL (1.0-4.8); Lymphocytes % (A) 24 %; MCH 27.1 pg (25.0-35.0); MCHC 30.3 g/dL (31.0-37.0); MCV 89.5 fL (80.0-100.0); Mean Platelet Volume 6.5; Monocytes # (A) 0.5 k/uL (0-1.0); Monocytes % (A) 6 %; Neutrophils # (A) 5.6 k/uL (1.3-7.7); Neutrophils % (A) 62 %; RBC 4.15 m/uL (3.80-5.40); WBC 9.1 k/uL (3.8-10.6); WBC (Perox) 9.17
[2016-11-23 17:31] LABS: ALT 35 U/L (9-52); AST 20 U/L (14-36); Alkaline Phosphatase 118 U/L (38-126); Anion Gap 13 mmol/L; Blood Urea Nitrogen 10 mg/dL (7-17); Calcium 9.9 mg/dL (8.4-10.2); Carbon Dioxide 18 mmol/L (22-30); Chloride 105 mmol/L (98-107); Glucose 98 mg/dL (74-99); Non-African American GFR(MDRD) >60 (>60 ml/min/1.73 sqM); Sodium 136 mmol/L (137-145); Total Bilirubin 0.3 mg/dL (0.2-1.3); Total Protein 7.3 g/dL (6.3-8.2)
--- NOTE | 2016-11-23 17:54 | ED ---
Abdominal Pain HPI - General Chief Complaint: Abdominal Pain Stated Complaint: [facility] sent/Abd Pain Time Seen by Provider: 11/23/16 16:03 Source: patient Mode of arrival: ambulatory Limitations: no limitations - History of Present Illness Initial Comments: Patient is a 66-year-old female with a history of diverticulitis status post colon resection 6 weeks ago who presents today for a chief complaint of abdominal pain. The patient was seen at urgent care and was told that she may possibly have a gallbladder issue and that she should come to the emergency department. Patient states she is having pain over the last 2 days, she describes her pain as burning and gnawing. It is worse after she eats or drinks anything. Nothing is alleviating. Patient has a history of gastritis diagnosed by endoscopy. Patient currently takes Prilosec 40 mg once daily. Patient has not tried any other medicines at this time for relief of symptoms. - Related Data Home Medications Medication Instructions Recorded Confirmed Gemfibrozil [Lopid] 600 mg PO BID 11/29/15 11/23/16 Lisinopril-Hctz 20-12.5 mg 1 tab PO DAILY 11/29/15 11/23/16 [Zestoretic 20-12.5] Omeprazole 40 mg PO DAILY 11/29/15 11/23/16 Simvastatin [Zocor] 20 mg PO HS 11/29/15 11/23/16 buPROPion XL [Wellbutrin Xl] 300 mg PO DAILY 11/29/15 11/23/16 Albuterol Sulfate [Proventil Hfa] 1 - 2 puff INHALATION RT-QID PRN 09/30/1604/10 Krill/Om-3/Dha/Epa/Phospho/Ast 1 cap PO DAILY 09/30/16 11/23/16 [[place]-3 Krill Oil 300 mg Sfgl] Pseudoephedrine [Sudafed] 30 - 60 mg PO Q4H PRN 09/30/16 11/23/16 HYDROcodone/APAP 7.5-325MG [[place] 1 tab PO Q8H PRN 11/23/16 11/23/16 7.5-325] Allergies Allergy/AdvReac Type Severity Reaction Status Date / Time Penicillins Allergy Unknown Swelling Verified 11/23/16 16:32 Review of Systems ROS Statement: Those systems with pertinent positive or pertinent negative responses have been documented in the HPI. ROS Other: All systems not noted in ROS Statement are negative. Constitutional: Denies: fever, chills Eyes: Denies: vision change ENT: Denies: ear pain, throat pain Respiratory: Denies: cough, dyspnea Cardiovascular: Denies: chest pain Endocrine: Denies: fatigue Gastrointestinal: Reports: abdominal pain, nausea. Denies: vomiting Genitourinary: Denies: dysuria Musculoskeletal: Denies: back pain Skin: Denies: lesions Neurological: Denies: headache, weakness Past Medical History Past Medical History: COPD, GERD/Reflux, Hyperlipidemia, Hypertension, Musculoskeletal Disorder, Osteoarthritis (OA) Additional Past Medical History / Comment(s): HEART MURMUR. HX OF "DUODENAL ULCER." DIVERTICULITIS. CHRONIC BACK PAIN. HX DB KIDNEY, 1 REMOVED. History of Any Multi-Drug Resistant Organisms: None Reported Past Surgical History: Bowel Resection, Section Additional Past Surgical History / Comment(s): X3. RT KIDNEY REPAIR ( 27 YRS OLD). BILAT CATARACTS. SIGMOIDOSCOPY, EGD Past Anesthesia/Blood Transfusion Reactions: No Reported Reaction Past Psychological History: Anxiety, Depression Smoking Status: Current every day smoker Past Alcohol Use History: None Reported Past Drug Use History: None Reported - Past Family History Mother Family Medical History: No Reported History General Exam Limitations: no limitations General appearance: alert, in no apparent distress Head exam: Present: atraumatic, normocephalic Eye exam: Present: normal appearance, PERRL ENT exam: Present: normal exam Neck exam: Present: normal inspection Respiratory exam: Present: normal lung sounds bilaterally Cardiovascular Exam: Present: regular rate, normal rhythm, normal heart sounds GI/Abdominal exam: Present: soft, other (Patient did not have any significant tenderness to palpation. There is no Au sign present.). Absent: distended , tenderness, guarding Rectal exam: Present: deferred Extremities exam: Present: normal inspection Back exam: Present: normal inspection Neurological exam: Present: alert, oriented X3 Psychiatric exam: Present: normal affect, normal mood Skin exam: Present: warm, dry, intact, other (There is a midline well-healed abdominal incision.) Course Vital Signs 11/23/16 15:36 Temperature 99.0 F Pulse Rate 52 L Respiratory 22 Rate Blood Pressure 123/59 O2 Sat by Pulse 93 L Oximetry Medical Decision Making - Medical Decision Making Patient presents with a chief complaint of abdominal pain. She was sent to the emergency department today for concerns of gallbladder pathology. Initial evaluation showed patient in no acute distress with stable vital signs. Examination of the abdomen is benign, there is no Au sign present. Patient does not have significant tenderness to palpation. History from the patient sounds more consistent with a worsening of her gastritis. Patient will be given Pepcid, and viscous lidocaine. We'll send basic abdominal labs, we'll hold off on any imaging currently unless otherwise dictated by laboratory evaluation. 5:52 PM Lab evaluation of this patient is unremarkable. Patient is mildly anemic however this is stable when compared to previous values. I reevaluation, patient states that her pain is gone. At this time, it is likely the patient is suffering from gastritis. I discussed her current medication regimen, and suggested that she add Zantac at night. Patient is agreeable with this care plan. At this time, her questions are answered to the best of my ability. She is instructed to follow-up with primary care and possibly gastroenterology. She is further instructed to return to the emergency department if her symptoms worsen or change in anyway. Patient is stable for discharge. - Lab Data Result diagrams: 11/23/16 17:17 11/23/16 17:17 Lab Results 11/23/16 11/23/16 Range/Units 17:17 17:17 WBC 9.1 (3.8-10.6) k/uL RBC 4.15 (3.80-5.40) m/uL Hgb 11.2 L (11.4-16.0) gm/dL Hct 37.1 (34.0-46.0) % MCV 89.5 (80.0-100.0) fL MCH 27.1 (25.0-35.0) pg MCHC 30.3 L (31.0-37.0) g/dL RDW 19.0 H (11.5-15.5) % Plt Count 490 H (150-450) k/uL Neutrophils % 62 % Lymphocytes % 24 % Monocytes % 6 % Eosinophils % 4 % Basophils % 1 % Neutrophils # 5.6 (1.3-7.7) k/uL Lymphocytes # 2.2 (1.0-4.8) k/uL Monocytes # 0.5 (0-1.0) k/uL Eosinophils # 0.3 (0-0.7) k/uL Basophils # 0.0 (0-0.2) k/uL Hypochromasia Marked Anisocytosis Slight Sodium 136 L (137-145) mmol/L Potassium 4.0 (3.5-5.1) mmol/L Chloride 105 (98-107) mmol/L Carbon Dioxide 18 L (22-30) mmol/L Anion Gap 13 mmol/L BUN 10 (7-17) mg/dL Creatinine 0.80 (0.52-1.04) mg/dL Est GFR (MDRD) Af Amer >60 (>60 ml/min/1.73 sqM) Est GFR (MDRD) Non-Af >60 (>60 ml/min/1.73 sqM) Glucose 98 (74-99) mg/dL Calcium 9.9 (8.4-10.2) mg/dL Total Bilirubin 0.3 (0.2-1.3) mg/dL AST 20 (14-36) U/L ALT 35 (9-52) U/L Alkaline Phosphatase 118 (38-126) U/L Total Protein 7.3 (6.3-8.2) g/dL Albumin 4.2 (3.5-5.0) g/dL Lipase 119 (23-300) U/L Disposition Clinical Impression: Abdominal pain, GERD (gastroesophageal reflux disease) Disposition: HOME SELF-CARE Condition: Good Instructions: Abdominal Pain (ED) Referrals: Flaquito Stanford DO [Primary Care Provider] - 1-2 days
[2016-11-23 18:10] VITALS: BP 123/75; PULSE 84; RESP 18; TEMP 98
== END 2016-11-23 18:55 | disposition home or self-care (01) ==
LOC: EC 15:11
DX: K21.9 Gastro-esophageal reflux disease without esophagitis (principal); R10.9 Unspecified abdominal pain; E78.5 Hyperlipidemia, unspecified; I10 Essential (primary) hypertension; F32.9 Major depressive disorder, single episode, unspecified; F41.9 Anxiety disorder, unspecified; F17.200 Nicotine dependence, unspecified, uncomplicated; Z98.890 Other specified postprocedural states; Z79.899 Other long term (current) drug therapy; Z88.0 Allergy status to penicillin
CPT/HCPCS: 36415; 80053; 83690; 85025; 96374; 99284

== ENCOUNTER 2016-12-31 09:51 | Day surgery (SDC) | payer BC, MEDICARE ==
[2016-12-30 09:07] VITALS: BMI 19.2
[~2016-12-31 09:51] MED LIST changes: -CLINDAMYCIN 900 MG in DEXTROSE 5% IN WATER 50 ML IVPB ONE; -DEXAMETHASONE SOD PHOSPHATE 10 MG/ML 1 ML VIAL IV ONE; -GENTAMICIN 240 MG in SODIUM CHLORIDE 0.9% 100 ML IVPB ONE; -HEPARIN SODIUM,PORCINE 5,000 UNIT/ML 1 ML VIAL SQ ONE; -HYDROmorphone 1 MG/ML 1 ML SYRINGE IVP PRN; +LACTATED RINGERS 1,000 ML IV SCH; +LIDOCAINE 1% 20 ML VIAL (10MG/ML) FOR IV START INTRADERMA PRN; -MIDAZOLAM 2 MG/2 ML VIAL IV PRN; -ONDANSETRON 4 MG/2 ML VIAL IVP ONE
[2016-12-31 10:31] VITALS: RESP 18; TEMP 99.1
[2016-12-31] MEDS ORDERED: PROPOFOL 10 MG/ML 20 ML VIAL IV ONE (11:03)
[2016-12-31] MEDS ORDERED: LIDOCAINE 1% INJ 10MG/ML (20 ML MDV) ONE (11:03)
--- NOTE | 2016-12-31 11:07 | P.GSHP ---
History of Present Illness H&P Date: 12/31/16 Chief Complaint: GERD This is a 58-year-old female who presents today for EGD. She's had issues with GERD. She is a known history of a hiatal hernia. Past Medical History Past Medical History: COPD, GERD/Reflux, Hyperlipidemia, Hypertension, Musculoskeletal Disorder, Osteoarthritis (OA) Additional Past Medical History / Comment(s): HEART MURMUR. HX OF "DUODENAL ULCER." DIVERTICULITIS. CHRONIC BACK PAIN. HX DB KIDNEY, 1 REMOVED. History of Any Multi-Drug Resistant Organisms: None Reported Past Surgical History: Bowel Resection, Section Additional Past Surgical History / Comment(s): X3. RT KIDNEY REPAIR ( 27 YRS OLD). BILAT CATARACTS. SIGMOIDOSCOPY, EGD Past Anesthesia/Blood Transfusion Reactions: No Reported Reaction Smoking Status: Current every day smoker - Past Family History Mother Family Medical History: No Reported History Medications and Allergies Home Medications Medication Instructions Recorded Confirmed Type Gemfibrozil [Lopid] 600 mg PO BID 11/29/15 12/31/16 History Lisinopril-Hctz 20-12.5 mg 1 tab PO DAILY 11/29/15 12/30/16 History [Zestoretic 20-12.5] Omeprazole 40 mg PO DAILY 11/29/15 12/31/16 History Simvastatin [Zocor] 20 mg PO HS 11/29/15 12/30/16 History buPROPion XL [Wellbutrin Xl] 300 mg PO DAILY 11/29/15 12/31/16 History Albuterol Sulfate [Proventil Hfa] 1 - 2 puff INHALATION RT-QID PRN 09/30/1611/08 History Krill/Om-3/Dha/Epa/Phospho/Ast 1 cap PO DAILY 09/30/16 12/30/16 History [[place]-3 Krill Oil 300 mg Sfgl] Pseudoephedrine [Sudafed] 30 - 60 mg PO Q4H PRN 09/30/16 12/31/16 History HYDROcodone/APAP 7.5-325MG [[place] 1 tab PO Q8H PRN 11/23/16 12/30/16 History 7.5-325] Ranitidine HCl [Zantac] 150 mg PO HS #30 tab 11/23/16 12/30/16 Rx Allergies Allergy/AdvReac Type Severity Reaction Status Date / Time Penicillins Allergy Unknown Swelling Verified 12/30/16 09:03 Surgical - Exam Vital Signs Temp Pulse Resp BP Pulse Ox 99.1 F 79 18 106/68 99 12/31/16 10:30 12/31/16 10:30 12/31/16 10:30 12/31/16 10:30 12/31/16 10:30 - General well developed, no distress - Eyes PERRL - ENT normal pinna - Neck no masses - Respiratory normal expansion - Cardiovascular Rhythm: regular - Abdomen Abdomen: soft, non tender Assessment and Plan Assessment: GERD. We'll perform EGD.
--- NOTE | 2016-12-31 11:14 | P.OP ---
Date of Procedure: 12/31/16 Preoperative Diagnosis: GERD Postoperative Diagnosis: Antral gastritis Hiatal hernia Esophagitis with evidence of stricture Procedure(s) Performed: EGD Anesthesia: MAC Surgeon: Duglas Man Pathology: other (Antrum, esophagus) Condition: stable Disposition: PACU Description of Procedure: The patient's placed on the endoscopy table in the lateral position. She received IV sedation. The gastroscope placed oropharynx passed in the esophagus and stomach. The scope was then placed through the pylorus. The first and second portion of the duodenum appeared normal. Scope was then brought back the antrum and this appeared mildly inflamed. A biopsies performed. The scope was then retroflexed and remainder of the stomach appeared normal. The GE junction was at 38 7 is. There was a moderate size hiatal hernia. He is evidence of a stricture. This was biopsied. The proximal esophagus appeared normal. Scope was withdrawn for patient.
[2016-12-31 11:53] VITALS: BP 104/53; PULSE 88
== END 2016-12-31 12:11 | disposition home or self-care (01) ==
LOC: ORWHC2ENDO 09:51
PROVIDERS: ATTEND Surgery
DX: K29.50 Unspecified chronic gastritis without bleeding (principal); K20.0 Eosinophilic esophagitis; K44.9 Diaphragmatic hernia without obstruction or gangrene; Z90.49 Acquired absence of other specified parts of digestive tract; I10 Essential (primary) hypertension; Z90.5 Acquired absence of kidney; F17.200 Nicotine dependence, unspecified, uncomplicated; R01.1 Cardiac murmur, unspecified; E78.5 Hyperlipidemia, unspecified; M19.90 Unspecified osteoarthritis, unspecified site; J44.9 Chronic obstructive pulmonary disease, unspecified; Z79.899 Other long term (current) drug therapy; Z88.0 Allergy status to penicillin
CPT/HCPCS: 88305; 88312; 88342; 43239; J2001; J2704

== ENCOUNTER 2017-03-10 07:26 | Day surgery (SDC) | payer BC, MEDICARE ==
[2017-03-04 12:21] VITALS: BMI 19.3
[~2017-03-10 07:26] MED LIST changes: +CLINDAMYCIN 900 MG in DEXTROSE 5% IN WATER 50 ML IVPB ONE; +DEXAMETHASONE SOD PHOSPHATE 10 MG/ML 1 ML VIAL IV ONE; +HEPARIN SODIUM,PORCINE 5,000 UNIT/ML 1 ML VIAL SQ ONE; +LACTATED RINGERS 1,000 ML IV ONE; -LACTATED RINGERS 1,000 ML IV SCH; +LEVOFLOXACIN 500MG-D5W PMX 500 MG in DEXTROSE/WATER 1 100ML.BAG IVPB ONE; +ONDANSETRON 4 MG/2 ML VIAL IVP ONE
[2017-03-10] MEDS ORDERED: LIDOCAINE 1% 20 ML VIAL (10MG/ML) FOR IV START INTRADERMA ONE (08:09)
[2017-03-10] MEDS ORDERED: fentaNYL (PF) 50 MCG/ML 2 ML AMP ONE (08:32)
[2017-03-10] MEDS ORDERED: MIDAZOLAM 2 MG/2 ML VIAL ONE (08:32)
[2017-03-10] MEDS ORDERED: ROCURONIUM BROMIDE 10 MG/ML 10 ML VIAL IV ONE (08:32)
[2017-03-10] MEDS ORDERED: MORPHINE SULFATE 10 MG/ML SYRINGE ONE (08:32)
[2017-03-10] MEDS ORDERED: GLYCOPYRROLATE 0.2 MG/ML 2 ML VIAL ONE (08:32)
[2017-03-10] MEDS ORDERED: PROPOFOL 10 MG/ML 20 ML VIAL IV ONE (08:32)
[2017-03-10] MEDS ORDERED: LIDOCAINE 1% INJ 10MG/ML (20 ML MDV) ONE (08:32)
[2017-03-10] MEDS ORDERED: KETOROLAC 30 MG/ML 1 ML VIAL ONE (08:32)
[2017-03-10] MEDS ORDERED: SUCCINYLCHOLINE CHLORIDE 100 MG/5 ML SYR IV ONE (08:32)
[2017-03-10] MEDS ORDERED: NEOSTIGMINE 1 MG/ML 10 ML VIAL ONE (08:32)
--- NOTE | 2017-03-10 08:35 | P.GSHP ---
History of Present Illness H&P Date: 03/10/17 Chief Complaint: Right inguinal hernia This is a 66-year-old female referred from Dr. Flaquito Nelson. Patient developed a painful mass in her right inguinal area. She is seen Kenzie found have a reducible right inguinal hernia. Past Medical History Past Medical History: COPD, GERD/Reflux, Hyperlipidemia, Hypertension, Musculoskeletal Disorder, Osteoarthritis (OA) Additional Past Medical History / Comment(s): HEART MURMUR. HX OF "DUODENAL ULCER." DIVERTICULITIS. CHRONIC BACK PAIN. HX DB KIDNEY, 1 REMOVED. History of Any Multi-Drug Resistant Organisms: None Reported Past Surgical History: Bowel Resection, Section Additional Past Surgical History / Comment(s): X3. RT KIDNEY REPAIR ( 27 YRS OLD). BILAT CATARACTS. SIGMOIDOSCOPY, EGD Past Anesthesia/Blood Transfusion Reactions: No Reported Reaction Smoking Status: Current every day smoker - Past Family History Mother Family Medical History: No Reported History Medications and Allergies Home Medications Medication Instructions Recorded Confirmed Type Gemfibrozil [Lopid] 600 mg PO BID 11/29/15 03/10/17 History Lisinopril-Hctz 20-12.5 mg 1 tab PO DAILY 11/29/15 03/04/17 History [Zestoretic 20-12.5] Omeprazole 40 mg PO QAM 11/29/15 03/04/17 History Simvastatin [Zocor] 20 mg PO HS 11/29/15 03/10/17 History buPROPion XL [Wellbutrin Xl] 300 mg PO DAILY 11/29/15 03/04/17 History Albuterol Sulfate [Proventil Hfa] 1 - 2 puff INHALATION RT-QID PRN 09/30/16 History Krill/Om-3/Dha/Epa/Phospho/Ast 1 cap PO DAILY 09/30/16 03/04/17 History [[place]-3 Krill Oil 300 mg Sfgl] Pseudoephedrine [Sudafed] 30 - 60 mg PO Q4H PRN 09/30/16 03/10/17 History HYDROcodone/APAP 7.5-325MG [[place] 1 tab PO Q8H PRN 11/23/16 03/04/17 History 7.5-325] Allergies Allergy/AdvReac Type Severity Reaction Status Date / Time Penicillins Allergy Unknown Swelling Verified 03/04/17 12:11 Surgical - Exam Vital Signs Temp Pulse Resp BP Pulse Ox 98.5 F 90 18 130/71 98 03/10/17 07:49 03/10/17 07:49 03/10/17 07:49 03/10/17 07:49 03/10/17 07:49 - General well developed, no distress - Eyes PERRL - ENT normal pinna - Neck no masses - Respiratory normal expansion - Cardiovascular Rhythm: regular - Abdomen Abdomen: soft, non tender Hernia: inguinal (Reducible right hernia) Assessment and Plan Assessment: Right internal hernia. We'll perform laparoscopic robotic assistance repair.
[2017-03-10] MEDS ORDERED: BUPIVACAINE-EPI 0.5%-1:200,000 10 ML VIAL SQ ONE (08:58)
[2017-03-10] MEDS ORDERED: ALBUTEROL NEBULIZED 2.5 MG/3 ML INHALATION ONE (10:18)
[2017-03-10] MEDS ORDERED: HYDROCORTISONE SUCCINATE 100 MG/2 ML VIAL IVP ONE (10:37)
[2017-03-10] MEDS ORDERED: IPRATROPIUM-ALBUTEROL 3 ML NEB INHALATION STA (10:46)
[2017-03-10 10:59] VITALS: TEMP 97
--- NOTE | 2017-03-10 11:08 | P.OP ---
Date of Procedure: 03/10/17 Preoperative Diagnosis: Right inguinal hernia Postoperative Diagnosis: Right inguinal hernia Low midline incisional hernia Procedure(s) Performed: Laparoscopic robotic-assisted repair of right inguinal hernia Laparoscopic robotic-assisted repair of incisional hernia Anesthesia: RISHABH Surgeon: Duglas Man Estimated Blood Loss (ml): 5 Pathology: none sent Condition: stable Disposition: PACU Description of Procedure: The patient's placed on the operating table in the supine position. The patient received general anesthesia. The patient's abdomen was prepped and draped in usual sterile fashion. The skin was anesthetized 1% local Xylocaine at the incision sites. Using an 11 blade a skin incision was made at the umbilicus. The fascia was grasped with a [place] and then the peritoneal cavity was entered with the Veress needle. Position of the Veress needle was confirmed with a positive drop test. After adequate insufflation a 5 mm trocar was placed into the peritoneal cavity. The Laparoscope was placed the peritoneal cavity. And a robotic 8 mm trocar was placed in the right lateral position and then another 8 mm robotic trochars placed in the left lateral position. The original 5 mm trocar was exchanged for a 12 mm trocar. The patient was placed in reverse Trendelenburg and then the patient was docked to the robot. The patient was noted to have a small incisional hernia located over the low midline position. Next the peritoneum over top of the hernia was incised and then using blunt and sharp dissection and electrocautery the hernia sac was dissected free from the floor of the inguinal canal. The peritoneum was reflected off of the incisional hernias well. The incisional hernia was closed using oh the lock suture. The hernia sac was completely reduced into the peritoneal cavity. And then using the Pro aerodynamics teacher mesh the hernia was repaired. Next the ventral light ST mesh was placed over top of the incisional hernia repair in the mesh was secured with 2 OV lock suture. The peritoneum was then sutured with 20V lock suture. The patient was then undocked the robot. The needle was withdrawn from the peritoneal cavity. The umbilical trocar site was closed with 0 Ethibond suture. The skin was closed interrupted 3-0 Monocryl suture. Dermabond dressing was applied. Patient was sent to recovery in stable condition.
[2017-03-10 11:13] LABS: ABG Base Excess -4.2 mmol/L; ABG HCO3 22 mmol/L (21-25); ABG PCO2 47 mmHg (35-45); ABG PH 7.28 (7.35-7.45); ABG PO2 80 mmHg (83-108); ABG TCO2 23 mmol/L (19-24)
[2017-03-10] MEDS: HYDROmorphone 0.5 MG/0.5 ML SYRINGE IVP PRN ×3 (11:15→11:29)
[2017-03-10 11:51] VITALS: RESP 16
[2017-03-10] MEDS ORDERED: LACTATED RINGERS 1,000 ML IV ONE (14:38)
[2017-03-10 15:27] VITALS: BP 101/60; PULSE 85
== END 2017-03-10 15:42 | disposition home or self-care (01) ==
LOC: OR 07:26
PROVIDERS: ATTEND Surgery
DX: K40.90 Unilateral inguinal hernia, without obstruction or gangrene, not specified as recurrent (principal); K43.2 Incisional hernia without obstruction or gangrene; J44.9 Chronic obstructive pulmonary disease, unspecified; K21.9 Gastro-esophageal reflux disease without esophagitis; E78.5 Hyperlipidemia, unspecified; I10 Essential (primary) hypertension; M19.90 Unspecified osteoarthritis, unspecified site; R01.1 Cardiac murmur, unspecified; Z87.19 Personal history of other diseases of the digestive system; F17.210 Nicotine dependence, cigarettes, uncomplicated; Z79.899 Other long term (current) drug therapy; Z88.0 Allergy status to penicillin
CPT/HCPCS: 49505; 49654; S2900; 36600; 82805; 94640; 94660

== ENCOUNTER → 2017-03-30 | Outpatient (CLI) | payer BC, MEDICARE ==
--- NOTE | 2017-03-31 08:20 | US ---
EXAMINATION TYPE: US thyroid st tissue head/neck DATE OF EXAM: 03/30/2017 COMPARISON: CT neck 2013 CLINICAL HISTORY: K11.8 Submandibular Cyst. Patient has palp cyst under chin that has popped out. Patient states she has been on antibiotics for one week. scanned directly over palp area, there is a minimally complex cystic structure measures 3.0 x 1.7 x 2.8 cm that is superior to normal appearing thyroid gland. IMPRESSION: Minimally complex cystic subsegmental mass measuring 3.0 cm. Differential considerations are for a thyroglossal duct cyst, diving ranula, or branchial cleft cyst. No sonographic evidence of superimposed infection/abscess formation. CT could be performed to further evaluate anatomic margins and enhancement.
== END | disposition home or self-care (01) ==
LOC: RADUSWWP 16:46
PROVIDERS: ATTEND Family Medicine
DX: R22.1 Localized swelling, mass and lump, neck (principal)
CPT/HCPCS: 76536

== ENCOUNTER → 2017-04-29 | Outpatient (CLI) | payer BC, MEDICARE ==
--- NOTE | 2017-04-29 16:35 | XR ---
EXAMINATION TYPE: XR lumbar spine 2 or 3V DATE OF EXAM: 04/29/2017 COMPARISON: NONE HISTORY: Pain posterior right hip, fall TECHNIQUE: Three-view lumbar spine FINDINGS: There 5 lumbar-type vertebral bodies. The L1-L4 pedicles appear intact. L5 pedicles are not as well visualized. There is loss of disc height L4-5 with a grade 1 spondylolisthesis of L4 anterior and L5. Remaining d isc heights are preserved. Vertebral body heights are preserved. Structures May BE slightly osteopeni c. IMPRESSION: 1. Grade 1 spondylolisthesis of L4 anterior on L5 with degenerative disc changes L4-5.
--- NOTE | 2017-04-29 16:37 | XR ---
EXAMINATION TYPE: XR pelvis complete DATE OF EXAM: 04/29/2017 COMPARISON: NONE HISTORY: Fall right hip pain TECHNIQUE: AP pelvis FINDINGS: Sacroiliac joints and symphysis pubis are normal. The femoral heads articulate with the isela tabulum. No acute fractures are evident. Postsurgical changes within the left hemipelvis. Normal bowel gas is present. IMPRESSION: 1. Normal AP pelvis
== END ==
LOC: RADXRMAIN 16:07
PROVIDERS: ATTEND Family Medicine
DX: M43.16 Spondylolisthesis, lumbar region (principal)
CPT/HCPCS: 72100

== ENCOUNTER → 2017-05-27 | Outpatient (CLI) | payer BC, MEDICARE ==
--- NOTE | 2017-05-27 16:31 | BD ---
EXAMINATION TYPE: MG DEXA axial skeleton. DATE OF EXAM: 05/27/2017 CLINICAL HISTORY: 66-year-old female osteoarthritis, postmenopausal screening Height: 61 Weight: 104 FRAX RISK QUESTIONS: Alcohol (3 or more units per day): no Family History (Parent hip fracture): possibly mother.....patient's sister has broken a hip Glucocorticoids (More than 3mos): occasionally to improve breathing (Ex: prednisone, prednisolone, methylprednisolone, dexamethasone, and hydrocortisone). History of Fracture in Adulthood: no Secondary Osteoporosis: 1. Type 1 Diabetes: no 2. Hyperthyroidism: no 3. Menopause before 45: about age 43 4. Malnutrition: unsure-weight loss after several abdominal surgeries in about last 6 months 5. Chronic liver disease: no Rheumatoid Arthritis: no Current Tobacco Use: yes RISK FACTORS Family History of Osteoporosis: yes Active: yes Diet low in dairy products/other sources of calcium: somewhat; several servings during the week Postmenopausal woman: yes Take estrogen and/or progesterone medications: not now How long: very very briefly Lost more than 2 inches in height since high school: unsure; Frequent falls: no Poor Health: "so-so" health Hyperparathyroidism: no Adrenal Insufficiency: no MEDICATIONS: Prednisone or other steroids: yes, as needed How Long: at least over 5 years Thyroid Medications: no Osteoporosis Medications: no Additional Medications: blood pressure med, cholesterol meds Additional History: fell last month: see report of Lumbar Spine ; low in Vitamin D; osteoarthritis EXAM MEASUREMENTS: Bone mineral densitometry was performed using the [employer] System. Bone mineral density as measured about the Lumbar spine is: ----- L1-L4(G/cm2): 0.902 T Score Values are as follows: ----- L2: -3.4 ----- L3: -2.4 ----- L4: -0.8 ----- L1-L4: -2.3 Bone mineral density not previously done at this facility Bone mineral density about the R hip (g/cm2): 0.631 Bone mineral density about the L hip (g/cm2): 0.613 T Score values are as follows: -----R Neck: -2.9 -----L Neck: -3.1 -----R Total: -3.3 -----L Total: -3.4 Bone mineral density not previously done at this facility IMPRESSION: Osteoporosis (T Score less than -2.5). There is increased fracture risk and therapy is usually indicated based on age. Re-Screen 1-2 years. NOTE: T-SCORE=SD OF THE YOUNG ADULT MEAN.
== END | disposition home or self-care (01) ==
LOC: RADBDWWP 08:36
PROVIDERS: ATTEND Family Medicine
DX: M85.80 Other specified disorders of bone density and structure, unspecified site (principal); M19.90 Unspecified osteoarthritis, unspecified site
CPT/HCPCS: 77080

== ENCOUNTER 2017-05-30 15:52 | Inpatient (IN) | payer BC, MEDICARE ==
[2017-05-30] MEDS ORDERED: SODIUM CHLORIDE 0.9% 1,000 ML IV STA ×2 (16:31→18:14)
[2017-05-30] MEDS ORDERED: ONDANSETRON 4 MG/2 ML VIAL IVP STA (16:31)
[2017-05-30] MEDS ORDERED: PANTOPRAZOLE 40 MG/10 ML VIAL IVP STA (16:32)
[2017-05-30 17:02] LABS: Anisocytosis Slight; Basophils % (A) 0 %; Eosinophils # (A) 0.1 k/uL (0-0.7); Eosinophils % (A) 0 %; HCT 34.9 % (34.0-46.0); HGB 9.7 gm/dL (11.4-16.0); Hypochromasia Marked; Lymphocytes # (A) 0.7 k/uL (1.0-4.8); Lymphocytes % (A) 3 %; MCH 21.2 pg (25.0-35.0); MCHC 27.9 g/dL (31.0-37.0); Mean Platelet Volume 6.7; Microcytosis Slight; Monocytes # (A) 1.2 k/uL (0-1.0); Monocytes % (A) 6 %; Neutrophils # (A) 19.1 k/uL (1.3-7.7); Neutrophils % (A) 90 %; Platelet Count 429 k/uL (150-450); Poikilocytosis Slight; RBC 4.59 m/uL (3.80-5.40); WBC 21.3 k/uL (3.8-10.6)
--- NOTE | 2017-05-30 17:06 | ED ---
General Adult HPI - General Chief complaint: Abdominal Pain Stated complaint: vomiting Time Seen by Provider: 05/30/17 16:12 Source: patient, EMS, RN notes reviewed Mode of arrival: EMS - History of Present Illness Initial comments: Patient 66-year-old female presenting to the emergency room today by EMS, with chief complaint of increased nausea vomiting diarrhea that started this point. She does admit that she's had approximately 8-10 episodes of diarrhea. She states that she has noticed some bright red blood in the stool over the last 3 episodes. Patient denies any other complaints or symptoms at this time. She does admit to some mild abdominal cramping off and on throughout the day. Patient denies any recent fever, chills, shortness of breath, chest pain, back pain, numbness or tingling, dysuria or hematuria, constipation, headaches or visual changes, or any other complaints. - Related Data Home Medications Medication Instructions Recorded Confirmed Gemfibrozil [Lopid] 600 mg PO BID 11/29/15 03/10/17 Lisinopril-Hctz 20-12.5 mg 1 tab PO DAILY 11/29/15 03/04/17 [Zestoretic 20-12.5] Omeprazole 40 mg PO QAM 11/29/15 03/04/17 Simvastatin [Zocor] 20 mg PO HS 11/29/15 03/10/17 buPROPion XL [Wellbutrin Xl] 300 mg PO DAILY 11/29/15 03/04/17 Albuterol Sulfate [Proventil Hfa] 1 - 2 puff INHALATION RT-QID PRN 09/30/16 Krill/Om-3/Dha/Epa/Phospho/Ast 1 cap PO DAILY 09/30/16 03/04/17 [[place]-3 Krill Oil 300 mg Sfgl] Pseudoephedrine [Sudafed] 30 - 60 mg PO Q4H PRN 09/30/16 03/10/17 HYDROcodone/APAP 7.5-325MG [[place] 1 tab PO Q8H PRN 11/23/16 03/04/17 7.5-325] Previous Rx's Medication Instructions Recorded Docusate [Colace] 100 mg PO BID #20 capsule 03/10/17 HYDROcodone/APAP 7.5-325MG [[place] 1 each PO Q4H PRN #30 tab 03/10/17 7.5] Allergies Allergy/AdvReac Type Severity Reaction Status Date / Time Penicillins Allergy Unknown Swelling Verified 05/30/17 15:53 Review of Systems ROS Statement: Those systems with pertinent positive or pertinent negative responses have been documented in the HPI. ROS Other: All systems not noted in ROS Statement are negative. Past Medical History Past Medical History: COPD, GERD/Reflux, Hyperlipidemia, Hypertension, Musculoskeletal Disorder, Osteoarthritis (OA) Additional Past Medical History / Comment(s): HEART MURMUR. HX OF "DUODENAL ULCER." DIVERTICULITIS. CHRONIC BACK PAIN. HX DB KIDNEY, 1 REMOVED. History of Any Multi-Drug Resistant Organisms: None Reported Past Surgical History: Bowel Resection, Section Additional Past Surgical History / Comment(s): X3. RT KIDNEY REPAIR ( 27 YRS OLD). BILAT CATARACTS. SIGMOIDOSCOPY, EGD Past Anesthesia/Blood Transfusion Reactions: No Reported Reaction Past Psychological History: Anxiety, Depression Smoking Status: Current every day smoker Past Alcohol Use History: None Reported Past Drug Use History: None Reported - Past Family History Mother Family Medical History: No Reported History General Exam - General Exam Comments Initial Comments: General: The patient is awake and alert, in no distress, and does not appear acutely ill. Eye: Pupils are equal, round and reactive to light, extra-ocular movements are intact. No nystagmus. There is normal conjunctiva bilaterally. No signs of icterus. Ears, nose, mouth and throat: There are moist mucous membranes and no oral lesions. Neck: The neck is supple, there is no tenderness or JVD. Cardiovascular: There is a regular rate and rhythm. No murmur, rub or gallop is appreciated. Respiratory: Lungs are clear to auscultation, respirations are non-labored, breath sounds are equal. No wheezes, stridor, rales, or rhonchi. Gastrointestinal: Soft, non-distended, non-tender abdomen without masses or organomegaly noted. There is no rebound or guarding present. No CVA tenderness. Bowel sounds are unremarkable. Musculoskeletal: Normal ROM, no tenderness. Strength 5/5. Sensation intact. Pulses equal bilaterally 2+. Neurological: A&O x 3. CN II-XII intact, There are no obvious motor or sensory deficits. Coordination appears grossly intact. Speech is normal. Skin: Skin is warm and dry and no rashes or lesions are noted. Psychiatric: Cooperative, appropriate mood & affect, normal judgment. Course Vital Signs 05/30/17 05/30/17 15:53 18:45 Temperature 97.6 F 97.9 F Pulse Rate 80 72 Respiratory 16 20 Rate Blood Pressure 140/64 179/79 O2 Sat by Pulse 99 100 Oximetry Medical Decision Making - Medical Decision Making Patient reexamined at this time shows no signs of distress. She is resting comfortable at this time. Patient's abdomen soft on palpation. Patient has had 3 loose bowel movement through the emergency room. There has been bright red blood per rectum. Patient's hemoglobin stable at 9.7. Patient's vital stable. [place]. [address]. multiple episodes of nausea vomiting diarrhea today. Patient's CT of the abdomen and pelvis does show evidence for colitis. No other infection. Negative lactic acid. Amylase 186. Lipase negative. Patient's C. diff negative. Patient will be admitted for GI bleed. Given dose of Protonix here in the emergency room. Patient doing well at this time. Case was discussed with Dr. Longoria who accept admission for Dr. Manjarrez. Consult per Dr. Man - Lab Data Result diagrams: 05/30/17 16:45 05/30/17 16:45 Lab Results 05/30/17 05/30/17 05/30/17 Range/Units 16:45 16:45 16:45 WBC 21.3 H (3.8-10.6) k/uL RBC 4.59 (3.80-5.40) m/uL Hgb 9.7 L (11.4-16.0) gm/dL Hct 34.9 (34.0-46.0) % MCV 76.0 L (80.0-100.0) fL MCH 21.2 L (25.0-35.0) pg MCHC 27.9 L (31.0-37.0) g/dL RDW 18.0 H (11.5-15.5) % Plt Count 429 (150-450) k/uL Neutrophils % 90 % Lymphocytes % 3 % Monocytes % 6 % Eosinophils % 0 % Basophils % 0 % Neutrophils # 19.1 H (1.3-7.7) k/uL Lymphocytes # 0.7 L (1.0-4.8) k/uL Monocytes # 1.2 H (0-1.0) k/uL Eosinophils # 0.1 (0-0.7) k/uL Basophils # 0.0 (0-0.2) k/uL Hypochromasia Marked Poikilocytosis Slight Anisocytosis Slight Microcytosis Slight Sodium 144 (137-145) mmol/L Potassium 4.3 (3.5-5.1) mmol/L Chloride 113 H (98-107) mmol/L Carbon Dioxide 17 L (22-30) mmol/L Anion Gap 14 mmol/L BUN 15 (7-17) mg/dL Creatinine 0.60 (0.52-1.04) mg/dL Est GFR (CKD-EPI)AfAm >90 (>60 ml/min/1.73 sqM) Est GFR (CKD-EPI)NonAf >90 (>60 ml/min/1.73 sqM) Glucose 105 H (74-99) mg/dL Plasma Lactic Acid Shawn 1.2 (0.7-2.0) mmol/L Calcium 8.9 (8.4-10.2) mg/dL Total Bilirubin 0.5 (0.2-1.3) mg/dL AST 34 (14-36) U/L ALT 21 (9-52) U/L Alkaline Phosphatase 85 (38-126) U/L Total Protein 6.6 (6.3-8.2) g/dL Albumin 3.7 (3.5-5.0) g/dL Amylase 186 H (30-110) U/L Lipase 87 (23-300) U/L Urine Color Urine Appearance (Clear) Urine pH (5.0-8.0) Ur Specific [place] (1.001-1.035) Urine Protein (Negative) Urine Glucose (UA) (Negative) Urine Ketones (Negative) Urine Blood (Negative) Urine Nitrite (Negative) Urine Bilirubin (Negative) Urine Urobilinogen (<2.0) mg/dL Ur Leukocyte Esterase (Negative) Stool Occult Blood (Negative) C. difficile (EIA) Intrp (Negative) 05/30/17 05/30/17 05/30/17 Range/Units 17:25 17:25 18:50 WBC (3.8-10.6) k/uL RBC (3.80-5.40) m/uL Hgb (11.4-16.0) gm/dL Hct (34.0-46.0) % MCV (80.0-100.0) fL MCH (25.0-35.0) pg MCHC (31.0-37.0) g/dL RDW (11.5-15.5) % Plt Count (150-450) k/uL Neutrophils % % Lymphocytes % % Monocytes % % Eosinophils % % Basophils % % Neutrophils # (1.3-7.7) k/uL Lymphocytes # (1.0-4.8) k/uL Monocytes # (0-1.0) k/uL Eosinophils # (0-0.7) k/uL Basophils # (0-0.2) k/uL Hypochromasia Poikilocytosis Anisocytosis Microcytosis Sodium (137-145) mmol/L Potassium (3.5-5.1) mmol/L Chloride (98-107) mmol/L Carbon Dioxide (22-30) mmol/L Anion Gap mmol/L BUN (7-17) mg/dL Creatinine (0.52-1.04) mg/dL Est GFR (CKD-EPI)AfAm (>60 ml/min/1.73 sqM) Est GFR (CKD-EPI)NonAf (>60 ml/min/1.73 sqM) Glucose (74-99) mg/dL Plasma Lactic Acid Shawn (0.7-2.0) mmol/L Calcium (8.4-10.2) mg/dL Total Bilirubin (0.2-1.3) mg/dL AST (14-36) U/L ALT (9-52) U/L Alkaline Phosphatase (38-126) U/L Total Protein (6.3-8.2) g/dL Albumin (3.5-5.0) g/dL Amylase (30-110) U/L Lipase (23-300) U/L Urine Color Yellow Urine Appearance Clear (Clear) Urine pH 6.0 (5.0-8.0) Ur Specific [place] 1.033 (1.001-1.035) Urine Protein Trace H (Negative) Urine Glucose (UA) Negative (Negative) Urine Ketones Negative (Negative) Urine Blood Negative (Negative) Urine Nitrite Negative (Negative) Urine Bilirubin Negative (Negative) Urine Urobilinogen <2.0 (<2.0) mg/dL Ur Leukocyte Esterase Negative (Negative) Stool Occult Blood Positive H (Negative) C. difficile (EIA) Intrp Negative (Negative) Disposition Clinical Impression: GI bleed, Colitis Disposition: ADMITTED IP TO THIS HOSP Condition: Stable Referrals: Amadeo Manjarrez MD [Primary Care Provider] - 1-2 days Time of Disposition: 18:44
[2017-05-30 17:15] LABS: ALT 21 U/L (9-52); AST 34 U/L (14-36); Albumin 3.7 g/dL (3.5-5.0); Alkaline Phosphatase 85 U/L (38-126); Amylase 186 U/L (30-110); Anion Gap 14 mmol/L; Blood Urea Nitrogen 15 mg/dL (7-17); Calcium 8.9 mg/dL (8.4-10.2); Carbon Dioxide 17 mmol/L (22-30); Chloride 113 mmol/L (98-107); Glucose 105 mg/dL (74-99); Lipase 87 U/L (23-300); Potassium 4.3 mmol/L (3.5-5.1); Sodium 144 mmol/L (137-145); Total Bilirubin 0.5 mg/dL (0.2-1.3); Total Protein 6.6 g/dL (6.3-8.2)
[2017-05-30] MEDS ORDERED: RX INFO: IV CONTRAST WAS GIVEN 1 EACH MISC MISCELLANE PRN (17:37)
--- NOTE | 2017-05-30 17:46 | XR ---
EXAMINATION TYPE: XR KUB DATE OF EXAM: 05/30/2017 COMPARISON: NONE INDICATION: Abdominal pain nausea vomiting diarrhea TECHNIQUE: Single view abdomen supine view FINDINGS: There is a normal bowel gas pattern. Psoas margins are normal. No organomegaly is present. There may be a 1.1 cm calcification at the left renal pelvis overlying the left L1 transverse process . Postsurgical sutures in the left hemipelvis. IMPRESSION: 1. Suspected left renal pelvis stone discussed above
--- NOTE | 2017-05-30 18:24 | CT ---
EXAMINATION TYPE: CT abdomen pelvis w con DATE OF EXAM: 05/30/2017 COMPARISON: NONE INDICATION: Nausea, vomiting, diarrhea, and now rectal bleeding. DLP: 291.5 mGycm, Automated exposure control for dose reduction was used. CONTRAST: 100 mL of Isovue 300. Study performed without Oral Contrast TECHNIQUE: Axial images were obtained from above the diaphragm to the pubic rami in the axial plane a t 5 mm thick sections. Reconstructed images are reviewed on the computer in the coronal plane. FINDINGS: Limited CT sections are obtained the lung bases. The lung bases are clear. There is a small hiatal hernia present. CT ABDOMEN: Liver: Normal Spleen: Normal Pancreas: Atrophic Adrenal glands: The adrenal glands are normal. Gallbladder: Gallstones are present in the distended gallbladder. No wall thickening or pericholecyst ic fluid is identified. Kidneys: No masses are evident. No hydronephrosis is present. No cysts are present. Delayed images were obtained through the kidneys, which remain unremarkable. Aorta: Vascular calcification is within the aorta. Inferior vena cava: Normal. CT PELVIS: Loops of bowel within the abdomen and pelvis are normal. Postsurgical changes are within the sigm oid colon. Some mild inflammatory changes adjacent to the descending colon. Transverse colon appears to have some diffuse thickening as well. Consider mild colitis. Distal descending colon sigmoid colon otherwise appear normal. The ascending colon appears within normal limits. Appendix: Normal as visualized. Urinary bladder: Normal. Genitourinary structures: Uterus and adnexal regions appear normal. Osseous structures: No suspicious lytic or sclerotic lesions. Facet changes are within the lower lumb ar spine. IMPRESSIONS: 1. Findings suggestive for diffuse mild colitis within the transverse colon and within the descendin g colon. Clinical correlation recommended.
[2017-05-30] MEDS ORDERED: metroNIDAZOLE-NS PMX 500 MG in SALINE 1 100ML.BAG IVPB STA (18:47)
[2017-05-30] MEDS ORDERED: LEVOFLOXACIN 500MG-D5W PMX 500 MG in DEXTROSE/WATER 1 100ML.BAG IVPB STA (18:47)
[2017-05-30] MEDS ORDERED: MORPHINE SULFATE 4MG/4ML SYRG IVP STA (18:51)
[2017-05-30] MEDS ORDERED: LORazepam 2 MG/ML INJ IV PRN (18:51)
[2017-05-30] MEDS ORDERED: ONDANSETRON 4 MG/2 ML VIAL IVP PRN (18:51)
[2017-05-30] MEDS ORDERED: NALOXONE 0.4 MG/ML 1 ML VIAL IV PRN (18:51)
[2017-05-30] MEDS ORDERED: MORPHINE SULFATE 4MG/4ML SYRG IV PRN (18:51)
[2017-05-30 18:55] LABS: Appearance,Urine Clear (Clear); Bilirubin,Urine Negative (Negative); Blood,Urine Negative (Negative); Color,Urine Yellow; Glucose,Urine (UA) Negative (Negative); Ketones,Urine Negative (Negative); Leukocyte Esterase,Urine Negative (Negative); Nitrite,Urine Negative (Negative); Protein,Urine Trace (Negative); Specific Gravity,Urine 1.033 (1.001-1.035); Urobilinogen,Urine <2.0 mg/dL (<2.0)
[2017-05-30] MEDS ORDERED: ACETAMINOPHEN TAB 500 MG TAB PO STA (20:18)
[2017-05-31 00:08] LABS: Anisocytosis Slight; HCT 31.7 % (34.0-46.0); HGB 9.2 gm/dL (11.4-16.0); Hypochromasia Marked; Mean Platelet Volume 6.9; Microcytosis Slight; Platelet Count 412 k/uL (150-450); Poikilocytosis Slight; RBC 4.17 m/uL (3.80-5.40); RDW 18.1 % (11.5-15.5); WBC 24.2 k/uL (3.8-10.6)
[2017-05-31] MEDS: metroNIDAZOLE-NS PMX 500 MG in SALINE 1 100ML.BAG IVPB SCH ×4 (00:54→17:09)
[2017-05-31] MEDS: MORPHINE ORAL SOLN 10 MG/5 ML CUP PO PRN (01:14)
[2017-05-31 07:08] LABS: Glucose,Whole Blood 90 mg/dL (75-99)
[2017-05-31] MEDS ORDERED: ALBUTEROL NEBULIZED 2.5 MG/3 ML INHALATION PRN ×2 (08:23→08:32)
--- NOTE | 2017-05-31 08:23 | P.HPIM ---
History of Present Illness H&P Date: 05/31/17 Chief Complaint: GI bleed with abdominal pain. This is a history of physical 66-year-old white female with known history of previous diverticular disease. She states that she had acute onset abdominal pain with nausea. She went to the bathroom and had significant lower GI bleeding. The patient has had history of diverticulitis in the past. At this time, however computed tomography scan shows transverse colon colitis with descending colon acute colitis. She states she's feels much better at this time but appetite is poor. No significant chest pain. No fever or chills are stated since admission. Review of Systems Constitutional: Denies chills, Denies fever Eyes: denies blurred vision, denies pain Ears, nose, mouth and throat: Denies headache, Denies sore throat Cardiovascular: Denies chest pain, Denies shortness of breath Respiratory: Denies cough Gastrointestinal: Reports abdominal pain Genitourinary: Denies dysuria, Denies hematuria Musculoskeletal: Denies myalgias Past Medical History Past Medical History: COPD, GERD/Reflux, Hyperlipidemia, Hypertension, Musculoskeletal Disorder, Osteoarthritis (OA) Additional Past Medical History / Comment(s): HEART MURMUR. HX OF "DUODENAL ULCER." DIVERTICULITIS. CHRONIC BACK PAIN. HX DB KIDNEY, 1 REMOVED. History of Any Multi-Drug Resistant Organisms: None Reported Past Surgical History: Bowel Resection, Section Additional Past Surgical History / Comment(s): X3. RT KIDNEY REPAIR ( 27 YRS OLD). BILAT CATARACTS. SIGMOIDOSCOPY, EGD Past Anesthesia/Blood Transfusion Reactions: No Reported Reaction Past Psychological History: Anxiety, Depression Smoking Status: Current every day smoker Past Alcohol Use History: None Reported Additional Past Alcohol Use History / Comment(s): SMOKES 1PPD. STARTED SMOKING 13 YRS OLD, QUIT FOR 7 YEARS THEN RESUMED Past Drug Use History: None Reported - Past Family History Mother Family Medical History: No Reported History Medications and Allergies Home Medications Medication Instructions Recorded Confirmed Type Gemfibrozil [Lopid] 600 mg PO BID 11/29/15 05/31/17 History Lisinopril-Hctz 20-12.5 mg 1 tab PO DAILY 11/29/15 05/31/17 History [Zestoretic 20-12.5] Omeprazole 40 mg PO QAM 11/29/15 05/31/17 History Simvastatin [Zocor] 20 mg PO HS 11/29/15 05/31/17 History buPROPion XL [Wellbutrin Xl] 300 mg PO DAILY 11/29/15 05/31/17 History Albuterol Sulfate [Proventil Hfa] 1 - 2 puff INHALATION RT-QID PRN 09/30/1611/09 History Krill/Om-3/Dha/Epa/Phospho/Ast 1 cap PO DAILY 09/30/16 05/31/17 History [[place]-3 Krill Oil 300 mg Sfgl] Pseudoephedrine [Sudafed] 30 - 60 mg PO Q4H PRN 09/30/16 05/31/17 History HYDROcodone/APAP 7.5-325MG [[place] 1 tab PO Q8H PRN 11/23/16 05/31/17 History 7.5-325] Docusate [Colace] 100 mg PO BID #20 capsule 03/10/17 05/31/17 Rx HYDROcodone/APAP 7.5-325MG [[place] 1 each PO Q4H PRN #30 tab 03/10/17 05/31/17 Rx 7.5] Allergies Allergy/AdvReac Type Severity Reaction Status Date / Time Penicillins Allergy Unknown Swelling Verified 05/30/17 15:53 Physical Exam Vitals: Vital Signs Temp Pulse Pulse Resp BP BP Pulse Ox 05/31/17 05:55 98.2 F 89 17 148/72 98 05/30/17 23:00 98.1 F 73 17 150/61 100 05/30/17 20:40 97.3 F L 73 18 157/74 99 05/30/17 20:27 101.1 F H 05/30/17 19:50 77 15 155/68 99 05/30/17 18:45 97.9 F 72 20 179/79 100 05/30/17 15:53 97.6 F 80 16 140/64 99 Intake and Output 05/30/17 05/31/17 05/31/17 22:59 06:59 14:59 Other: # Voids 1 1 Weight 47.627 kg - Constitutional General appearance: no acute distress - EENT Eyes: EOMI - Neck Neck: no lymphadenopathy - Respiratory Respiratory: bilateral: CTA - Cardiovascular Rhythm: regular Heart sounds: normal: S1, S2 Abnormal Heart Sounds: no S3 Gallop - Gastrointestinal General gastrointestinal: decreased bowel sounds, soft, tenderness - Neurologic Neurologic: CNII-XII intact - Psychiatric Psychiatric: A&O x's 3, appropriate affect Results CBC & Chem 7: 05/30/17 23:33 05/30/17 16:45 Labs: Abnormal Lab Results - Last 24 Hours (Table) 05/30/17 05/30/17 05/30/17 Range/Units 16:45 16:45 17:25 WBC 21.3 H (3.8-10.6) k/uL Hgb 9.7 L (11.4-16.0) gm/dL Hct (34.0-46.0) % MCV 76.0 L (80.0-100.0) fL MCH 21.2 L (25.0-35.0) pg MCHC 27.9 L (31.0-37.0) g/dL RDW 18.0 H (11.5-15.5) % Neutrophils # 19.1 H (1.3-7.7) k/uL Lymphocytes # 0.7 L (1.0-4.8) k/uL Monocytes # 1.2 H (0-1.0) k/uL Chloride 113 H (98-107) mmol/L Carbon Dioxide 17 L (22-30) mmol/L Glucose 105 H (74-99) mg/dL Amylase 186 H (30-110) U/L Urine Protein (Negative) Stool Occult Blood Positive H (Negative) 05/30/17 05/30/17 Range/Units 18:50 23:33 WBC 24.2 H (3.8-10.6) k/uL Hgb 9.2 L (11.4-16.0) gm/dL Hct 31.7 L (34.0-46.0) % MCV 76.0 L (80.0-100.0) fL MCH 22.0 L (25.0-35.0) pg MCHC 29.0 L (31.0-37.0) g/dL RDW 18.1 H (11.5-15.5) % Neutrophils # (1.3-7.7) k/uL Lymphocytes # (1.0-4.8) k/uL Monocytes # (0-1.0) k/uL Chloride (98-107) mmol/L Carbon Dioxide (22-30) mmol/L Glucose (74-99) mg/dL Amylase (30-110) U/L Urine Protein Trace H (Negative) Stool Occult Blood (Negative) Thrombosis Risk Factor Assmnt - Choose All That Apply Any of the Below Risk Factors Present?: Yes Each Factor Represents 1 point: Abnormal pulmonary function (COPD), Medical pt on bed rest, Swollen legs (current) Other Risk Factors: Yes Each Risk Factor Represents 2 Points: Age 61-74 years Thrombosis Risk Factor Assessment Total Risk Factor Score: 5 Thrombosis Risk Factor Assessment Level: High Risk Assessment and Plan (1) Colitis Current Visit: Yes Status: Acute Code(s): K52.9 - NONINFECTIVE GASTROENTERITIS AND COLITIS, UNSPECIFIED SNOMED Code(s): 41658906 (2) GI bleed Current Visit: Yes Status: Acute Code(s): K92.2 - GASTROINTESTINAL HEMORRHAGE, UNSPECIFIED SNOMED Code(s): 38896190 (3) COPD (chronic obstructive pulmonary disease) Current Visit: Yes Status: Chronic Code(s): J44.9 - CHRONIC OBSTRUCTIVE PULMONARY DISEASE, UNSPECIFIED SNOMED Code(s): 25507329 (4) Diverticulitis Current Visit: No Status: Chronic Code(s): K57.92 - DVTRCLI OF INTEST, PART UNSP, W/O PERF OR ABSCESS W/O BLEED SNOMED Code(s): 223880356 Plan: Continue IV hydration. Check CBC and CMP in a.m. Await surgical input. I suspect continued IV therapy with appropriate antibiotic treatment. Reconcile home medications. See orders otherwise. I had a long discussion with the patient regarding smoking cessation. Time with Patient: Less than 30
[2017-05-31] MEDS: PANTOPRAZOLE 40 MG/10 ML VIAL IV SCH (08:34)
[2017-05-31 08:45] LABS: Anisocytosis Slight; Basophils % (A) 0 %; Eosinophils % (A) 0 %; HGB 8.7 gm/dL (11.4-16.0); Hypochromasia Marked; Lymphocytes % (A) 4 %; MCH 21.2 pg (25.0-35.0); MCV 75.5 fL (80.0-100.0); Microcytosis Slight; Monocytes # (A) 1.2 k/uL (0-1.0); Monocytes % (A) 5 %; Neutrophils # (A) 20.4 k/uL (1.3-7.7); Neutrophils % (A) 89 %; Platelet Count 402 k/uL (150-450); WBC 22.8 k/uL (3.8-10.6)
[2017-05-31] MEDS ORDERED: LISINOPRIL-HCTZ 20-12.5 MG 1 EACH TAB PO SCH (09:00)
[2017-05-31] MEDS ORDERED: buPROPion XL 300 MG TAB.ER.24H PO SCH (09:00)
[2017-05-31] MEDS ORDERED: NON-FORMULARY DRUG (Krill/Om-3/Dha/Epa/Phospho/Ast [Omega-3 Krill Oil 300 Mg Sfgl] 1 CAP) PO SCH (09:00)
[2017-05-31 09:05] LABS: ALT 20 U/L (9-52); AST 17 U/L (14-36); Albumin 3.7 g/dL (3.5-5.0); Alkaline Phosphatase 96 U/L (38-126); Anion Gap 18 mmol/L; Blood Urea Nitrogen 13 mg/dL (7-17); Calcium 9.2 mg/dL (8.4-10.2); Carbon Dioxide 17 mmol/L (22-30); Chloride 107 mmol/L (98-107); Glucose 89 mg/dL (74-99); Potassium 3.7 mmol/L (3.5-5.1); Sodium 142 mmol/L (137-145); Total Bilirubin 0.4 mg/dL (0.2-1.3); Total Protein 6.3 g/dL (6.3-8.2)
[2017-05-31 09:36] VITALS: BMI 20.5
--- NOTE | 2017-05-31 09:50 | P.GSCN ---
<Ankita Garcia M - Last Filed: 05/31/17 09:38> History of Present Illness Consult date: 05/31/17 Reason for Consult: Abdominal pain History of present illness: 66-year-old female presented to the emergency room after activating EMS system when patient noted that she had persistent nausea vomiting diarrhea with bloody stool. Patient stated that she had 8-10 episodes of diarrhea. Patient became concerned when she noted bright red blood in the toilet bowl. This persist. Patient denied any dizziness lightheadedness. Denied chest pain or shortness of breath. Did admit to having some mild abdominal cramping on and off throughout the day. No fever chill. In the emergency room CAT scan of the abdomen pelvis report indicated diffuse mild colitis within the transverse colon and within the descending colon. Loops of bowel within the abdomen pelvis normal. Postsurgical changes within the sigmoid colon hemoglobin on admission 9.2 white count elevated 24.2 Patient states had several loose stools in the emergency room has not had any since being admitted to the hospital past surgical history 10/12/2016 underwent low anterior resection for diverticulitis.. March 10 2017 laparoscopic robotic-assisted repair of a right inguinal hernia Past medical history chronic back pain, COPD, esophageal reflux, hyperlipidemia. Arthritis. Inside depressive disorder Patient is an active every day smoker Review of Systems Essentially unremarkable except as mentioned in the present illness Past Medical History Past Medical History: COPD, GERD/Reflux, Hyperlipidemia, Hypertension, Musculoskeletal Disorder, Osteoarthritis (OA) Additional Past Medical History / Comment(s): HEART MURMUR. HX OF "DUODENAL ULCER." DIVERTICULITIS. CHRONIC BACK PAIN. HX DB KIDNEY, 1 REMOVED. History of Any Multi-Drug Resistant Organisms: None Reported Past Surgical History: Bowel Resection, Section Additional Past Surgical History / Comment(s): X3. RT KIDNEY REPAIR ( 27 YRS OLD). BILAT CATARACTS. SIGMOIDOSCOPY, EGD Past Anesthesia/Blood Transfusion Reactions: No Reported Reaction Past Psychological History: Anxiety, Depression Smoking Status: Current every day smoker Past Alcohol Use History: None Reported Additional Past Alcohol Use History / Comment(s): SMOKES 1PPD. STARTED SMOKING 13 YRS OLD, QUIT FOR 7 YEARS THEN RESUMED Past Drug Use History: None Reported - Past Family History Mother Family Medical History: No Reported History Medications and Allergies Home Medications Medication Instructions Recorded Confirmed Type Gemfibrozil [Lopid] 600 mg PO BID 11/29/15 05/31/17 History Lisinopril-Hctz 20-12.5 mg 1 tab PO DAILY 11/29/15 05/31/17 History [Zestoretic 20-12.5] Omeprazole 40 mg PO QAM 11/29/15 05/31/17 History Simvastatin [Zocor] 20 mg PO HS 11/29/15 05/31/17 History buPROPion XL [Wellbutrin Xl] 300 mg PO DAILY 11/29/15 05/31/17 History Albuterol Sulfate [Proventil Hfa] 1 - 2 puff INHALATION RT-QID PRN 09/30/1611/09 History Krill/Om-3/Dha/Epa/Phospho/Ast 1 cap PO DAILY 09/30/16 05/31/17 History [Kirvin-3 Krill Oil 300 mg Sfgl] Pseudoephedrine [Sudafed] 30 - 60 mg PO Q4H PRN 09/30/16 05/31/17 History HYDROcodone/APAP 7.5-325MG [[place] 1 tab PO DAILY PRN 11/23/16 05/31/17 History 7.5-325] Docusate [Colace] 100 mg PO BID #20 capsule 03/10/17 05/31/17 Rx Allergies Allergy/AdvReac Type Severity Reaction Status Date / Time Penicillins Allergy Unknown Swelling Verified 05/30/17 15:53 Surgical - Exam Vital Signs Temp Pulse Resp BP Pulse Ox 97.6 F 80 16 140/64 99 05/30/17 15:53 05/30/17 15:53 05/30/17 15:53 05/30/17 15:53 05/30/17 15:53 GENERAL APPEARANCE: 66-year-old female patient is alert, oriented, in no acute distress. VITAL SIGNS: Reviewed HEENT: Head is normocephalic and atraumatic. Pupils are equal and reactive. The nares are patent. Oropharynx is clear without lesions. NECK: Supple without lymphadenopathy. Traches midline. HEART: S1, S2. Regular rate and rhythm. Denying chest pain adequate air movement bilaterally on room air LUNGS: No crackles or wheezes are heard. ABDOMEN: Soft, nontender, nondistended with good bowel sounds. No peritoneal signs. No palpable organomegaly or masses. No stool this morning states urinating no difficulty no nausea no vomiting states abdominal discomfort improving EXTREMITIES: Normal skin color and turgor. No cyanosis, rash, ulceration, clubbing or edema. Radial pedal pulses are 2/4 bilaterally. NEUROLOGICAL: No focal deficits. Strength and sensation are grossly intact. Results - Labs 05/31/17 07:56 05/31/17 07:56 Abnormal Lab Results - Last 24 Hours (Table) 05/30/17 05/30/17 05/30/17 Range/Units 16:45 16:45 17:25 WBC 21.3 H (3.8-10.6) k/uL Hgb 9.7 L (11.4-16.0) gm/dL Hct (34.0-46.0) % MCV 76.0 L (80.0-100.0) fL MCH 21.2 L (25.0-35.0) pg MCHC 27.9 L (31.0-37.0) g/dL RDW 18.0 H (11.5-15.5) % Neutrophils # 19.1 H (1.3-7.7) k/uL Lymphocytes # 0.7 L (1.0-4.8) k/uL Monocytes # 1.2 H (0-1.0) k/uL Chloride 113 H (98-107) mmol/L Carbon Dioxide 17 L (22-30) mmol/L Glucose 105 H (74-99) mg/dL Amylase 186 H (30-110) U/L Urine Protein (Negative) Stool Occult Blood Positive H (Negative) 05/30/17 05/30/17 05/31/17 Range/Units 18:50 23:33 07:56 WBC 24.2 H 22.8 H (3.8-10.6) k/uL Hgb 9.2 L 8.7 L (11.4-16.0) gm/dL Hct 31.7 L 31.0 L (34.0-46.0) % MCV 76.0 L 75.5 L (80.0-100.0) fL MCH 22.0 L 21.2 L (25.0-35.0) pg MCHC 29.0 L 28.0 L (31.0-37.0) g/dL RDW 18.1 H 18.0 H (11.5-15.5) % Neutrophils # 20.4 H (1.3-7.7) k/uL Lymphocytes # (1.0-4.8) k/uL Monocytes # 1.2 H (0-1.0) k/uL Chloride (98-107) mmol/L Carbon Dioxide (22-30) mmol/L Glucose (74-99) mg/dL Amylase (30-110) U/L Urine Protein Trace H (Negative) Stool Occult Blood (Negative) 05/31/17 Range/Units 07:56 WBC (3.8-10.6) k/uL Hgb (11.4-16.0) gm/dL Hct (34.0-46.0) % MCV (80.0-100.0) fL MCH (25.0-35.0) pg MCHC (31.0-37.0) g/dL RDW (11.5-15.5) % Neutrophils # (1.3-7.7) k/uL Lymphocytes # (1.0-4.8) k/uL Monocytes # (0-1.0) k/uL Chloride (98-107) mmol/L Carbon Dioxide 17 L (22-30) mmol/L Glucose (74-99) mg/dL Amylase (30-110) U/L Urine Protein (Negative) Stool Occult Blood (Negative) Diabetes panel 05/30/17 05/31/17 Range/Units 16:45 07:56 Sodium 144 142 (137-145) mmol/L Potassium 4.3 3.7 (3.5-5.1) mmol/L Chloride 113 H 107 (98-107) mmol/L Carbon Dioxide 17 L 17 L (22-30) mmol/L BUN 15 13 (7-17) mg/dL Creatinine 0.60 0.65 (0.52-1.04) mg/dL Glucose 105 H 89 (74-99) mg/dL Calcium 8.9 9.2 (8.4-10.2) mg/dL AST 34 17 (14-36) U/L ALT 21 20 (9-52) U/L Alkaline Phosphatase 85 96 (38-126) U/L Total Protein 6.6 6.3 (6.3-8.2) g/dL Albumin 3.7 3.7 (3.5-5.0) g/dL Calcium panel 05/30/17 05/31/17 Range/Units 16:45 07:56 Calcium 8.9 9.2 (8.4-10.2) mg/dL Albumin 3.7 3.7 (3.5-5.0) g/dL Pituitary panel 05/30/17 05/31/17 Range/Units 16:45 07:56 Sodium 144 142 (137-145) mmol/L Potassium 4.3 3.7 (3.5-5.1) mmol/L Chloride 113 H 107 (98-107) mmol/L Carbon Dioxide 17 L 17 L (22-30) mmol/L BUN 15 13 (7-17) mg/dL Creatinine 0.60 0.65 (0.52-1.04) mg/dL Glucose 105 H 89 (74-99) mg/dL Calcium 8.9 9.2 (8.4-10.2) mg/dL Adrenal panel 05/30/17 05/31/17 Range/Units 16:45 07:56 Sodium 144 142 (137-145) mmol/L Potassium 4.3 3.7 (3.5-5.1) mmol/L Chloride 113 H 107 (98-107) mmol/L Carbon Dioxide 17 L 17 L (22-30) mmol/L BUN 15 13 (7-17) mg/dL Creatinine 0.60 0.65 (0.52-1.04) mg/dL Glucose 105 H 89 (74-99) mg/dL Calcium 8.9 9.2 (8.4-10.2) mg/dL Total Bilirubin 0.5 0.4 (0.2-1.3) mg/dL AST 34 17 (14-36) U/L ALT 21 20 (9-52) U/L Alkaline Phosphatase 85 96 (38-126) U/L Total Protein 6.6 6.3 (6.3-8.2) g/dL Albumin 3.7 3.7 (3.5-5.0) g/dL Assessment and Plan Assessment: Impression Present on admission nausea vomiting with bright red bloody stools suspect due to colitis Computed tomography scan of the abdomen pelvis on admission showed evidence of colitis within the transverse colon and descending colon Present on admission acute blood loss anemia suspect due to a GI bleed History of diverticulitis with a prior low anterior resection done in October 11 EGD done December 2016 showed antral gastritis esophagitis evidence of stricture hiatal hernia recent laparoscopic robotic-assisted repair of right inguinal hernia February 2017 Current every day smoker COPD no evidence of exacerbation Plan Nothing by mouth except ice chips and meds IV fluid for hydration Repeat labs in the morning DVT and GI prophylaxis IV Flagyl and Levaquin as ordered Further surgical recommendations will follow with you No evidence of an acute surgical abdomen at this time Surgical consultation note dictated for Dr. Gibbs rounding on behalf of dr latif The above impression and plan of care have been discussed and directed by signing physician. Ankita Garcia nurse practitioner acting as scribe for signing physician. <Alejandro Gibbs - Last Filed: 05/31/17 15:08> Surgical - Exam Vital Signs Temp Pulse Resp BP Pulse Ox 97.6 F 80 16 140/64 99 05/30/17 15:53 05/30/17 15:53 05/30/17 15:53 05/30/17 15:53 05/30/17 15:53 Results - Labs 05/31/17 07:56 05/31/17 07:56 Abnormal Lab Results - Last 24 Hours (Table) 05/30/17 05/30/17 05/30/17 Range/Units 16:45 16:45 17:25 WBC 21.3 H (3.8-10.6) k/uL Hgb 9.7 L (11.4-16.0) gm/dL Hct (34.0-46.0) % MCV 76.0 L (80.0-100.0) fL MCH 21.2 L (25.0-35.0) pg MCHC 27.9 L (31.0-37.0) g/dL RDW 18.0 H (11.5-15.5) % Neutrophils # 19.1 H (1.3-7.7) k/uL Lymphocytes # 0.7 L (1.0-4.8) k/uL Monocytes # 1.2 H (0-1.0) k/uL Chloride 113 H (98-107) mmol/L Carbon Dioxide 17 L (22-30) mmol/L Glucose 105 H (74-99) mg/dL Amylase 186 H (30-110) U/L Urine Protein (Negative) Stool Occult Blood Positive H (Negative) 05/30/17 05/30/17 05/31/17 Range/Units 18:50 23:33 07:56 WBC 24.2 H 22.8 H (3.8-10.6) k/uL Hgb 9.2 L 8.7 L (11.4-16.0) gm/dL Hct 31.7 L 31.0 L (34.0-46.0) % MCV 76.0 L 75.5 L (80.0-100.0) fL MCH 22.0 L 21.2 L (25.0-35.0) pg MCHC 29.0 L 28.0 L (31.0-37.0) g/dL RDW 18.1 H 18.0 H (11.5-15.5) % Neutrophils # 20.4 H (1.3-7.7) k/uL Lymphocytes # (1.0-4.8) k/uL Monocytes # 1.2 H (0-1.0) k/uL Chloride (98-107) mmol/L Carbon Dioxide (22-30) mmol/L Glucose (74-99) mg/dL Amylase (30-110) U/L Urine Protein Trace H (Negative) Stool Occult Blood (Negative) 05/31/17 Range/Units 07:56 WBC (3.8-10.6) k/uL Hgb (11.4-16.0) gm/dL Hct (34.0-46.0) % MCV (80.0-100.0) fL MCH (25.0-35.0) pg MCHC (31.0-37.0) g/dL RDW (11.5-15.5) % Neutrophils # (1.3-7.7) k/uL Lymphocytes # (1.0-4.8) k/uL Monocytes # (0-1.0) k/uL Chloride (98-107) mmol/L Carbon Dioxide 17 L (22-30) mmol/L Glucose (74-99) mg/dL Amylase (30-110) U/L Urine Protein (Negative) Stool Occult Blood (Negative) Diabetes panel 05/30/17 05/31/17 Range/Units 16:45 07:56 Sodium 144 142 (137-145) mmol/L Potassium 4.3 3.7 (3.5-5.1) mmol/L Chloride 113 H 107 (98-107) mmol/L Carbon Dioxide 17 L 17 L (22-30) mmol/L BUN 15 13 (7-17) mg/dL Creatinine 0.60 0.65 (0.52-1.04) mg/dL Glucose 105 H 89 (74-99) mg/dL Calcium 8.9 9.2 (8.4-10.2) mg/dL AST 34 17 (14-36) U/L ALT 21 20 (9-52) U/L Alkaline Phosphatase 85 96 (38-126) U/L Total Protein 6.6 6.3 (6.3-8.2) g/dL Albumin 3.7 3.7 (3.5-5.0) g/dL Calcium panel 05/30/17 05/31/17 Range/Units 16:45 07:56 Calcium 8.9 9.2 (8.4-10.2) mg/dL Albumin 3.7 3.7 (3.5-5.0) g/dL Pituitary panel 05/30/17 05/31/17 Range/Units 16:45 07:56 Sodium 144 142 (137-145) mmol/L Potassium 4.3 3.7 (3.5-5.1) mmol/L Chloride 113 H 107 (98-107) mmol/L Carbon Dioxide 17 L 17 L (22-30) mmol/L BUN 15 13 (7-17) mg/dL Creatinine 0.60 0.65 (0.52-1.04) mg/dL Glucose 105 H 89 (74-99) mg/dL Calcium 8.9 9.2 (8.4-10.2) mg/dL Adrenal panel 05/30/17 05/31/17 Range/Units 16:45 07:56 Sodium 144 142 (137-145) mmol/L Potassium 4.3 3.7 (3.5-5.1) mmol/L Chloride 113 H 107 (98-107) mmol/L Carbon Dioxide 17 L 17 L (22-30) mmol/L BUN 15 13 (7-17) mg/dL Creatinine 0.60 0.65 (0.52-1.04) mg/dL Glucose 105 H 89 (74-99) mg/dL Calcium 8.9 9.2 (8.4-10.2) mg/dL Total Bilirubin 0.5 0.4 (0.2-1.3) mg/dL AST 34 17 (14-36) U/L ALT 21 20 (9-52) U/L Alkaline Phosphatase 85 96 (38-126) U/L Total Protein 6.6 6.3 (6.3-8.2) g/dL Albumin 3.7 3.7 (3.5-5.0) g/dL Assessment and Plan Assessment: As above. Patient's pain has resolved. CAT scan findings suggest probable ischemic colitis. Patient just recently had a colonoscopy and sigmoid resection last year. We'll review those pathology findings. Continue IV antibiotics. Begin clear liquids. Continue IV hydration.
[2017-05-31 12:09] LABS: Glucose,Whole Blood 93 mg/dL (75-99)
[2017-05-31] MEDS: SODIUM CHLORIDE 0.9% 1,000 ML IV SCH ×2 (13:46→17:08)
[2017-05-31 17:01] LABS: Glucose,Whole Blood 101 mg/dL (75-99)
[2017-05-31] MEDS: LEVOFLOXACIN 500MG-D5W PMX 500 MG in DEXTROSE/WATER 1 100ML.BAG IVPB SCH (18:38)
[2017-05-31] MEDS ORDERED: CALCIUM CARBONATE 500 MG CHEWABLE PO PRN (19:40)
[2017-05-31] MEDS: GEMFIBROZIL 600 MG TAB PO SCH (20:34)
[2017-05-31] MEDS: ATORVASTATIN 10 MG TAB PO SCH (20:34)
[2017-05-31] MEDS: HYDROcodone/APAP 7.5-325MG 1 EACH TAB PO PRN (20:42)
[2017-05-31] MEDS: diphenhydrAMINE 25 MG CAP PO PRN (20:43)
[2017-05-31 20:47] LABS: Glucose,Whole Blood 86 mg/dL (75-99)
[2017-05-31] MEDS: DOCUSATE 100 MG CAP PO SCH (23:43)
[2017-06-01] MEDS: metroNIDAZOLE-NS PMX 500 MG in SALINE 1 100ML.BAG IVPB SCH ×5 (00:16→23:24)
[2017-06-01] MEDS: SODIUM CHLORIDE 0.9% 1,000 ML IV SCH (06:37)
[2017-06-01 07:34] LABS: Glucose,Whole Blood 74 mg/dL (75-99)
[2017-06-01] MEDS: PANTOPRAZOLE 40 MG/10 ML VIAL IV SCH (07:58)
[2017-06-01] MEDS: buPROPion XL 300 MG TAB.ER.24H PO SCH (07:59)
[2017-06-01] MEDS: LISINOPRIL-HCTZ 20-12.5 MG 1 EACH TAB PO SCH (07:59)
[2017-06-01] MEDS: DOCUSATE 100 MG CAP PO SCH ×2 (08:00→20:26)
[2017-06-01] MEDS: GEMFIBROZIL 600 MG TAB PO SCH ×2 (08:00→20:18)
[2017-06-01] MEDS: DEXTROSE 5%-0.9% NACL 1,000 ML IV SCH ×3 (08:00→23:27)
[2017-06-01 09:30] LABS: Anisocytosis Slight; HCT 27.4 % (34.0-46.0); HGB 7.7 gm/dL (11.4-16.0); Hypochromasia Marked; MCH 21.4 pg (25.0-35.0); MCHC 28.2 g/dL (31.0-37.0); Mean Platelet Volume 6.8; Microcytosis Slight; Platelet Count 380 k/uL (150-450); RBC 3.61 m/uL (3.80-5.40); RDW 18.3 % (11.5-15.5); WBC 24.8 k/uL (3.8-10.6)
[2017-06-01 09:48] LABS: ALT 14 U/L (9-52); AST 13 U/L (14-36); Albumin 2.9 g/dL (3.5-5.0); Alkaline Phosphatase 87 U/L (38-126); Anion Gap 15 mmol/L; Blood Urea Nitrogen 9 mg/dL (7-17); Calcium 8.8 mg/dL (8.4-10.2); Carbon Dioxide 17 mmol/L (22-30); Chloride 111 mmol/L (98-107); Glucose 86 mg/dL (74-99); Potassium 3.7 mmol/L (3.5-5.1); Sodium 143 mmol/L (137-145); Total Bilirubin 0.2 mg/dL (0.2-1.3); Total Protein 5.4 g/dL (6.3-8.2)
--- NOTE | 2017-06-01 10:48 | P.PN ---
Subjective Progress Note Date: 06/01/17 66-year-old female seen this morning at bedside. Patient states that she did have 2 episodes last evening per rectum painless bleeding with a loose stool. Patient states that she is having increased abdominal cramping. Nausea sensation no active emesis. The hemoglobin this morning is 7.7. Admitting hemoglobin 9.7 CAT scan of the abdomen pelvis in the emergency room showed diffuse mild colitis within the transverse colon and descending colon. The loops of the bowel within the abdominal pelvis were normal. Patient has a history of undergoing sigmoid colon resection for diverticulitis September 2016. Additionally in February 2017 l robotic-assisted repair of a right inguinal hernia. Objective - Vital Signs Vital signs: Vital Signs Temp 99.8 F H 06/01/17 07:00 Pulse 85 06/01/17 07:00 Resp 16 06/01/17 07:00 BP 151/77 06/01/17 07:00 Pulse Ox 97 06/01/17 07:00 Intake & Output 05/31/17 06/01/17 06/01/17 18:59 06:59 18:59 Intake Total 475 100 Balance 475 100 Weight 47.627 kg Intake: Intake, IV Titration 475 100 Amount Levofloxacin 500Mg-D5w 100 Pmx 500 mg In Dextrose/ Water 1 100ml.bag @ 100 mls/hr IVPB Q24H [facility] Rx#: [id number] Sodium Chloride 0.9% 1, 375 000 ml @ 125 mls/hr IV . Q8H [facility] Rx#:[id number] metroNIDAZOLE-NS PMX 500 100 mg In Saline 1 100ml.bag @ 100 mls/hr IVPB Q6HR [facility] Rx#:[id number] Other: # Voids 1 2 # Bowel Movements 1 - Exam Physical exam 66-year-old female reportedly experiencing abdominal cramping this morning with a nausea sensation Lungs adequate air movement bilaterally on room air Heart S1-S2 audible and regular Abdomen soft nondistended bowel tones present no nausea no vomiting abdominal cramping no stool states urinating no difficulties Extremities no edema - Labs CBC & Chem 7: 06/01/17 08:44 06/01/17 08:44 Labs: Abnormal Lab Results - Last 24 Hours (Table) 05/31/17 06/01/17 06/01/17 Range/Units 16:47 07:11 08:44 WBC 24.8 H (3.8-10.6) k/uL RBC 3.61 L (3.80-5.40) m/uL Hgb 7.7 L (11.4-16.0) gm/dL Hct 27.4 L (34.0-46.0) % MCV 76.0 L (80.0-100.0) fL MCH 21.4 L (25.0-35.0) pg MCHC 28.2 L (31.0-37.0) g/dL RDW 18.3 H (11.5-15.5) % Chloride (98-107) mmol/L Carbon Dioxide (22-30) mmol/L Creatinine (0.52-1.04) mg/dL POC Glucose (mg/dL) 101 H 74 L (75-99) mg/dL AST (14-36) U/L Total Protein (6.3-8.2) g/dL Albumin (3.5-5.0) g/dL 06/01/17 Range/Units 08:44 WBC (3.8-10.6) k/uL RBC (3.80-5.40) m/uL Hgb (11.4-16.0) gm/dL Hct (34.0-46.0) % MCV (80.0-100.0) fL MCH (25.0-35.0) pg MCHC (31.0-37.0) g/dL RDW (11.5-15.5) % Chloride 111 H (98-107) mmol/L Carbon Dioxide 17 L (22-30) mmol/L Creatinine 0.50 L (0.52-1.04) mg/dL POC Glucose (mg/dL) (75-99) mg/dL AST 13 L (14-36) U/L Total Protein 5.4 L (6.3-8.2) g/dL Albumin 2.9 L (3.5-5.0) g/dL Assessment and Plan Assessment: Impression Present on admission nausea vomiting with bright red bloody stools suspect due to colitis Computed tomography scan of the abdomen pelvis on admission showed evidence of colitis within the transverse colon and descending colon Present on admission acute blood loss anemia suspect due to a GI bleed History of diverticulitis with a prior low anterior resection done in October 11 EGD done December 2016 showed antral gastritis esophagitis evidence of stricture hiatal hernia recent laparoscopic robotic-assisted repair of right inguinal hernia February 2017 Current every day smoker COPD no evidence of exacerbation Plan Updated Dr. latif plan EGD and colonoscopy to be done tomorrow Start GoLYTELY prep Nothing by mouth after midnight IV fluid for hydration Repeat labs in the morning DVT and GI prophylaxis IV Flagyl and Levaquin as ordered Further surgical recommendations will follow with you note dictated for dr latif The above impression and plan of care have been discussed and directed by signing physician. Ankita Garcia nurse practitioner acting as scribe for signing physician.
[2017-06-01] MEDS ORDERED: PEG 3350-NA SULF,BICARB,CL/KCL 4,000 ML BOTTLE PO ONE (11:00)
[2017-06-01] MEDS: SUCRALFATE 1 GM TAB PO SCH ×3 (11:49→20:18)
[2017-06-01 12:18] LABS: Glucose,Whole Blood 120 mg/dL (75-99)
--- NOTE | 2017-06-01 13:10 | P.PN ---
Subjective Progress Note Date: 06/01/17 Principal diagnosis: This is a continue proximal on a 58-year-old white female essentially admitted for acute colitis. The patient still feels as though she is having significant pain and fatigue. Blood counts have been stable. Otherwise, the patient has been tolerating diet, clears but has minimal appetite. No overt diarrhea. Natemesis or hematochezia stated. Objective - Vital Signs Vital signs: Vital Signs Temp 99.8 F H 06/01/17 07:00 Pulse 85 06/01/17 07:00 Resp 16 06/01/17 07:00 BP 151/77 06/01/17 07:00 Pulse Ox 97 06/01/17 07:00 Intake & Output 05/31/17 06/01/17 06/01/17 18:59 06:59 18:59 Intake Total 475 100 Balance 475 100 Weight 47.627 kg Intake: Intake, IV Titration 475 100 Amount Levofloxacin 500Mg-D5w 100 Pmx 500 mg In Dextrose/ Water 1 100ml.bag @ 100 mls/hr IVPB Q24H [facility] Rx#: [id number] Sodium Chloride 0.9% 1, 375 000 ml @ 125 mls/hr IV . Q8H [facility] Rx#:[id number] metroNIDAZOLE-NS PMX 500 100 mg In Saline 1 100ml.bag @ 100 mls/hr IVPB Q6HR [facility] Rx#:[id number] Other: # Voids 1 2 # Bowel Movements 1 - Constitutional General appearance: Present: thin - EENT Eyes: Absent: abnormal pupil - Neck Neck: Absent: lymphadenopathy - Respiratory Respiratory: right: dullness, bilateral: CTA - Cardiovascular Rhythm: regular Heart sounds: normal: S1, S2 Abnormal Heart Sounds: Absent: S3 Gallop - Musculoskeletal Musculoskeletal: Absent: gait normal - Labs CBC & Chem 7: 06/01/17 08:44 06/01/17 08:44 Labs: Abnormal Lab Results - Last 24 Hours (Table) 05/31/17 06/01/17 06/01/17 Range/Units 16:47 07:11 08:44 WBC 24.8 H (3.8-10.6) k/uL RBC 3.61 L (3.80-5.40) m/uL Hgb 7.7 L (11.4-16.0) gm/dL Hct 27.4 L (34.0-46.0) % MCV 76.0 L (80.0-100.0) fL MCH 21.4 L (25.0-35.0) pg MCHC 28.2 L (31.0-37.0) g/dL RDW 18.3 H (11.5-15.5) % Chloride (98-107) mmol/L Carbon Dioxide (22-30) mmol/L Creatinine (0.52-1.04) mg/dL POC Glucose (mg/dL) 101 H 74 L (75-99) mg/dL AST (14-36) U/L Total Protein (6.3-8.2) g/dL Albumin (3.5-5.0) g/dL 06/01/17 06/01/17 Range/Units 08:44 12:15 WBC (3.8-10.6) k/uL RBC (3.80-5.40) m/uL Hgb (11.4-16.0) gm/dL Hct (34.0-46.0) % MCV (80.0-100.0) fL MCH (25.0-35.0) pg MCHC (31.0-37.0) g/dL RDW (11.5-15.5) % Chloride 111 H (98-107) mmol/L Carbon Dioxide 17 L (22-30) mmol/L Creatinine 0.50 L (0.52-1.04) mg/dL POC Glucose (mg/dL) 120 H (75-99) mg/dL AST 13 L (14-36) U/L Total Protein 5.4 L (6.3-8.2) g/dL Albumin 2.9 L (3.5-5.0) g/dL Assessment and Plan (1) GI bleed Current Visit: Yes Status: Acute Code(s): K92.2 - GASTROINTESTINAL HEMORRHAGE, UNSPECIFIED SNOMED Code(s): 81024056 (2) Colitis Current Visit: Yes Status: Resolved Code(s): K52.9 - NONINFECTIVE GASTROENTERITIS AND COLITIS, UNSPECIFIED SNOMED Code(s): 79866851 (3) COPD (chronic obstructive pulmonary disease) Current Visit: Yes Status: Chronic Code(s): J44.9 - CHRONIC OBSTRUCTIVE PULMONARY DISEASE, UNSPECIFIED SNOMED Code(s): 56650629 (4) Diverticulitis Current Visit: No Status: Chronic Code(s): K57.92 - DVTRCLI OF INTEST, PART UNSP, W/O PERF OR ABSCESS W/O BLEED SNOMED Code(s): 513607066 Plan: Continue current regimen of tx Check CBC and CMP in a.m. We will continue to follow with general surgery. Hopefully we can slowly advance diet in the next 24-48 hours.
[2017-06-01 17:01] LABS: Glucose,Whole Blood 121 mg/dL (75-99)
[2017-06-01] MEDS: LEVOFLOXACIN 500MG-D5W PMX 500 MG in DEXTROSE/WATER 1 100ML.BAG IVPB SCH (19:06)
[2017-06-01] MEDS: ATORVASTATIN 10 MG TAB PO SCH (20:18)
[2017-06-01 20:50] LABS: Glucose,Whole Blood 134 mg/dL (75-99)
[2017-06-01] MEDS: HYDROcodone/APAP 7.5-325MG 1 EACH TAB PO PRN (21:01)
[2017-06-01] MEDS: diphenhydrAMINE 25 MG CAP PO PRN (21:02)
[2017-06-01] MEDS: LACTATED RINGERS 1,000 ML IV SCH (23:27)
[2017-06-02] MEDS: metroNIDAZOLE-NS PMX 500 MG in SALINE 1 100ML.BAG IVPB SCH ×3 (06:11→19:08)
[2017-06-02 07:02] LABS: Glucose,Whole Blood 101 mg/dL (75-99)
[2017-06-02 07:17] LABS: Anisocytosis Slight; Basophils # (A) 0.1 k/uL (0-0.2); Basophils % (A) 0 %; Eosinophils # (A) 0.1 k/uL (0-0.7); Eosinophils % (A) 0 %; HCT 25.3 % (34.0-46.0); HGB 7.1 gm/dL (11.4-16.0); Hypochromasia Marked; Lymphocytes # (A) 1.7 k/uL (1.0-4.8); Lymphocytes % (A) 10 %; MCH 21.6 pg (25.0-35.0); MCHC 28.1 g/dL (31.0-37.0); MCV 77.1 fL (80.0-100.0); Mean Platelet Volume 6.6; Microcytosis Slight; Monocytes # (A) 0.8 k/uL (0-1.0); Monocytes % (A) 5 %; Neutrophils # (A) 14.9 k/uL (1.3-7.7); Neutrophils % (A) 83 %; Platelet Count 362 k/uL (150-450); Poikilocytosis Slight; RBC 3.28 m/uL (3.80-5.40); RDW 17.6 % (11.5-15.5); WBC 17.9 k/uL (3.8-10.6)
[2017-06-02 07:32] LABS: ALT 18 U/L (9-52); AST 11 U/L (14-36); Albumin 2.7 g/dL (3.5-5.0); Alkaline Phosphatase 81 U/L (38-126); Anion Gap 13 mmol/L; Blood Urea Nitrogen 3 mg/dL (7-17); Calcium 8.5 mg/dL (8.4-10.2); Carbon Dioxide 19 mmol/L (22-30); Chloride 111 mmol/L (98-107); Glucose 95 mg/dL (74-99); Potassium 3.2 mmol/L (3.5-5.1); Sodium 143 mmol/L (137-145); Total Bilirubin 0.1 mg/dL (0.2-1.3); Total Protein 5.1 g/dL (6.3-8.2)
[2017-06-02] MEDS: DEXTROSE 5%-0.9% NACL 1,000 ML IV SCH ×2 (07:50→13:59)
[2017-06-02] MEDS: SUCRALFATE 1 GM TAB PO SCH ×4 (07:50→20:17)
[2017-06-02] MEDS: DOCUSATE 100 MG CAP PO SCH ×2 (07:50→20:23)
[2017-06-02] MEDS: GEMFIBROZIL 600 MG TAB PO SCH ×2 (07:51→20:23)
[2017-06-02] MEDS: LACTATED RINGERS 1,000 ML IV SCH (07:53)
[2017-06-02] MEDS: buPROPion XL 300 MG TAB.ER.24H PO SCH (07:53)
[2017-06-02] MEDS: PANTOPRAZOLE 40 MG/10 ML VIAL IV SCH (07:53)
[2017-06-02] MEDS: LISINOPRIL-HCTZ 20-12.5 MG 1 EACH TAB PO SCH (07:53)
[2017-06-02] MEDS: POTASSIUM CHLORIDE 20 MEQ in WATER FOR INJECTION 1 100ML.BAG IVPB SCH ×2 (10:06→16:00)
[2017-06-02] MEDS ORDERED: GLYCOPYRROLATE 0.2 MG/ML 2 ML VIAL ONE (10:54)
[2017-06-02] MEDS ORDERED: LIDOCAINE 1% INJ 10MG/ML (20 ML MDV) ONE (10:54)
[2017-06-02] MEDS ORDERED: PROPOFOL 10 MG/ML 20 ML VIAL IV ONE (10:54)
[2017-06-02] MEDS ORDERED: LACTATED RINGERS 1,000 ML IV ONE (11:22)
--- NOTE | 2017-06-02 11:23 | P.OP ---
Date of Procedure: 06/02/17 Preoperative Diagnosis: GI bleed Postoperative Diagnosis: Antral gastritis Large Hiatal hernia Esophagitis Colorectal stricture Severe colitis of entire colon pathology pending Procedure(s) Performed: EGD Colonoscopy Anesthesia: MAC Surgeon: Duglas Man Pathology: other (Antrum, esophagus, colorectal anastomosis, colon biopsy at 25 and 40 cm) Condition: stable Disposition: PACU Description of Procedure: The patient's placed on the endoscopy table in the lateral position. She received IV sedation. The gastroscope placed oropharynx passed in the esophagus and into the stomach. The scope was then placed through the pylorus. The first second portion duodenum appeared normal. Scope was then brought back the antrum this. Mildly inflamed. A biopsies performed. Scope was unretroflexed and remainder of the stomach appeared normal. There was a moderate size hiatal hernia. The GE junction was at 37 cm. The distal esophagus appeared inflamed and a biopsies performed. The proximal esophagus appeared normal. Scope was withdrawn for patient. Next, digital rectal exam was performed which revealed no rebound. The flexible clot scope was then placed patient anus passed rotator colon. At the 12 cm roxy there was a colorectal anastomosis. Appeared to be stricture of the anastomosis. The stricture was the same size as the colonoscope. He was difficult to maneuver the colonoscope through the stricture. The scope was then maneuvered through the stricture. And then passed rotator entire colon. There is obvious inflammation of the entire colon. The ileocecal valve was visualized. In the right colon there was inflammation. The trans-: Inflamed in the descending colon was inflamed. Biopsies of colon performed at the 40 and 25 cm roxy. The scope was then withdrawn. Patient was sent to recovery room stable condition.
[2017-06-02 12:07] LABS: Glucose,Whole Blood 104 mg/dL (75-99)
[2017-06-02] MEDS: MORPHINE ORAL SOLN 10 MG/5 ML CUP PO PRN ×2 (12:47→17:16)
[2017-06-02 16:54] LABS: Glucose,Whole Blood 102 mg/dL (75-99)
[2017-06-02] MEDS: ATORVASTATIN 10 MG TAB PO SCH (20:17)
[2017-06-02] MEDS: LEVOFLOXACIN 500MG-D5W PMX 500 MG in DEXTROSE/WATER 1 100ML.BAG IVPB SCH (20:24)
[2017-06-02 20:25] LABS: Glucose,Whole Blood 94 mg/dL (75-99)
--- NOTE | 2017-06-02 23:22 | P.PN ---
Subjective Principal diagnosis: This is a continue proximal on a 58-year-old white female essentially admitted for acute colitis. The patient still feels as though she is having significant pain and fatigue. Blood counts have been stable. The patient is scheduled for endoscopy procedure today. She still feels poorly. She has an underlying history of transverse colitis. Objective - Vital Signs Vital signs: Vital Signs Temp 97.6 F 06/02/17 17:00 Pulse 83 06/02/17 17:00 Resp 18 06/02/17 17:00 BP 137/71 06/02/17 17:00 Pulse Ox 97 06/02/17 17:00 Intake & Output 06/02/17 06/02/17 06/03/17 06:59 18:59 06:59 Intake Total 900 Balance 900 Intake: IV 900 Dextrose 5%-0.9% NaCl 1, 500 000 ml @ 125 mls/hr IV . Q8H BART Rx#:[id number] Potassium Chloride 20 meq 200 In Water For Injection 1 100ml.bag @ 50 mls/hr IVPB Q2H BART Rx#: [id number] Other: Voiding Method Toilet # Voids 3 # Bowel Movements 3 - Constitutional General appearance: Present: thin - EENT Eyes: Absent: abnormal pupil - Neck Neck: Absent: lymphadenopathy - Respiratory Respiratory: bilateral: CTA - Cardiovascular Rhythm: regular Heart sounds: normal: S1, S2 - Gastrointestinal General gastrointestinal: Present: soft. Absent: tenderness - Neurologic Neurologic: Present: CNII-XII intact - Labs CBC & Chem 7: 06/02/17 06:46 06/02/17 06:46 Labs: Abnormal Lab Results - Last 24 Hours (Table) 06/02/17 06/02/17 06/02/17 Range/Units 06:46 06:46 06:52 WBC 17.9 H (3.8-10.6) k/uL RBC 3.28 L (3.80-5.40) m/uL Hgb 7.1 L (11.4-16.0) gm/dL Hct 25.3 L (34.0-46.0) % MCV 77.1 L (80.0-100.0) fL MCH 21.6 L (25.0-35.0) pg MCHC 28.1 L (31.0-37.0) g/dL RDW 17.6 H (11.5-15.5) % Neutrophils # 14.9 H (1.3-7.7) k/uL Potassium 3.2 L (3.5-5.1) mmol/L Chloride 111 H (98-107) mmol/L Carbon Dioxide 19 L (22-30) mmol/L BUN 3 L (7-17) mg/dL Creatinine 0.45 L (0.52-1.04) mg/dL POC Glucose (mg/dL) 101 H (75-99) mg/dL Total Bilirubin 0.1 L (0.2-1.3) mg/dL AST 11 L (14-36) U/L Total Protein 5.1 L (6.3-8.2) g/dL Albumin 2.7 L (3.5-5.0) g/dL 06/02/17 06/02/17 Range/Units 12:00 16:50 WBC (3.8-10.6) k/uL RBC (3.80-5.40) m/uL Hgb (11.4-16.0) gm/dL Hct (34.0-46.0) % MCV (80.0-100.0) fL MCH (25.0-35.0) pg MCHC (31.0-37.0) g/dL RDW (11.5-15.5) % Neutrophils # (1.3-7.7) k/uL Potassium (3.5-5.1) mmol/L Chloride (98-107) mmol/L Carbon Dioxide (22-30) mmol/L BUN (7-17) mg/dL Creatinine (0.52-1.04) mg/dL POC Glucose (mg/dL) 104 H 102 H (75-99) mg/dL Total Bilirubin (0.2-1.3) mg/dL AST (14-36) U/L Total Protein (6.3-8.2) g/dL Albumin (3.5-5.0) g/dL Assessment and Plan (1) GI bleed Current Visit: Yes Status: Acute Code(s): K92.2 - GASTROINTESTINAL HEMORRHAGE, UNSPECIFIED SNOMED Code(s): 57548032 (2) Colitis Current Visit: Yes Status: Resolved Code(s): K52.9 - NONINFECTIVE GASTROENTERITIS AND COLITIS, UNSPECIFIED SNOMED Code(s): 37152549 (3) COPD (chronic obstructive pulmonary disease) Current Visit: Yes Status: Chronic Code(s): J44.9 - CHRONIC OBSTRUCTIVE PULMONARY DISEASE, UNSPECIFIED SNOMED Code(s): 86188684 (4) Diverticulitis Current Visit: No Status: Chronic Code(s): K57.92 - DVTRCLI OF INTEST, PART UNSP, W/O PERF OR ABSCESS W/O BLEED SNOMED Code(s): 284520723 Plan: Await upper and lower endoscopy. We will continue follow. . Check CBC and CMP in a.m.
[2017-06-03] MEDS: diphenhydrAMINE 25 MG CAP PO PRN ×2 (00:01→22:20)
[2017-06-03] MEDS: metroNIDAZOLE-NS PMX 500 MG in SALINE 1 100ML.BAG IVPB SCH ×3 (00:01→11:52)
[2017-06-03] MEDS: DEXTROSE 5%-0.9% NACL 1,000 ML IV SCH ×4 (04:13→22:00)
[2017-06-03 07:21] LABS: Glucose,Whole Blood 105 mg/dL (75-99)
[2017-06-03] MEDS: DOCUSATE 100 MG CAP PO SCH (07:47)
[2017-06-03] MEDS: buPROPion XL 300 MG TAB.ER.24H PO SCH (07:47)
[2017-06-03] MEDS: GEMFIBROZIL 600 MG TAB PO SCH ×2 (07:47→20:31)
[2017-06-03] MEDS: PANTOPRAZOLE 40 MG/10 ML VIAL IV SCH (07:47)
[2017-06-03] MEDS: SUCRALFATE 1 GM TAB PO SCH ×4 (07:47→21:59)
--- NOTE | 2017-06-03 08:05 | P.PN ---
Subjective Principal diagnosis: This is a continue proximal on a 58-year-old white female essentially admitted for acute colitis. The patient still feels as though she is having significant pain and fatigue. Blood counts have been stable. This is a continue progress on a 58-year-old white female essentially admitted for transverse colitis. She is postop day #1 colonoscopy which does show significant inflammation. The patient actually is clinically improving. He is ablated without difficulty. There was some element of hypotension. No fever or chills. No dizziness. No chest pain or shortness of breath is noted. Objective - Vital Signs Vital signs: Vital Signs Temp 96.7 F L 06/03/17 07:00 Pulse 70 06/03/17 07:00 Resp 16 06/03/17 07:00 BP 98/49 06/03/17 07:00 Pulse Ox 96 06/03/17 07:00 Intake & Output 06/02/17 06/03/17 06/03/17 18:59 06:59 18:59 Intake Total 900 300 Balance 900 300 Intake: IV 900 Dextrose 5%-0.9% NaCl 1, 500 000 ml @ 125 mls/hr IV . Q8H BART Rx#:[id number] Potassium Chloride 20 meq 200 In Water For Injection 1 100ml.bag @ 50 mls/hr IVPB Q2H BART Rx#: [id number] Oral 300 Other: Voiding Method Toilet # Voids 1 - Constitutional General appearance: Present: average body habitus - EENT Eyes: Absent: abnormal pupil - Respiratory Respiratory: bilateral: CTA - Cardiovascular Rhythm: regular Abnormal Heart Sounds: Absent: S3 Gallop - Gastrointestinal General gastrointestinal: Present: soft - Neurologic Neurologic: Present: CNII-XII intact - Labs CBC & Chem 7: 06/02/17 06:46 06/02/17 06:46 Labs: Abnormal Lab Results - Last 24 Hours (Table) 06/02/17 06/02/17 06/03/17 Range/Units 12:00 16:50 07:11 POC Glucose (mg/dL) 104 H 102 H 105 H (75-99) mg/dL Assessment and Plan (1) GI bleed Current Visit: Yes Status: Acute Code(s): K92.2 - GASTROINTESTINAL HEMORRHAGE, UNSPECIFIED SNOMED Code(s): 78769227 (2) Colitis Current Visit: Yes Status: Resolved Code(s): K52.9 - NONINFECTIVE GASTROENTERITIS AND COLITIS, UNSPECIFIED SNOMED Code(s): 72080880 (3) COPD (chronic obstructive pulmonary disease) Current Visit: Yes Status: Chronic Code(s): J44.9 - CHRONIC OBSTRUCTIVE PULMONARY DISEASE, UNSPECIFIED SNOMED Code(s): 24956608 (4) Diverticulitis Current Visit: No Status: Chronic Code(s): K57.92 - DVTRCLI OF INTEST, PART UNSP, W/O PERF OR ABSCESS W/O BLEED SNOMED Code(s): 273476105 Plan: Continue current regimen of treatment. Advance diet as tolerated per surgery. Anticipate discharge in the a.m. Pathology is pending.
[2017-06-03 08:17] LABS: Anisocytosis Slight; Basophils % (A) 0 %; Eosinophils # (A) 0.2 k/uL (0-0.7); Eosinophils % (A) 2 %; Hypochromasia Marked; Lymphocytes # (A) 2.4 k/uL (1.0-4.8); Lymphocytes % (A) 20 %; MCH 21.5 pg (25.0-35.0); MCHC 28.2 g/dL (31.0-37.0); MCV 76.2 fL (80.0-100.0); Mean Platelet Volume 6.3; Microcytosis Slight; Monocytes # (A) 0.6 k/uL (0-1.0); Monocytes % (A) 5 %; Neutrophils # (A) 8.5 k/uL (1.3-7.7); Neutrophils % (A) 70 %; Platelet Count 354 k/uL (150-450); Poikilocytosis Slight; RBC 3.15 m/uL (3.80-5.40); RDW 18.2 % (11.5-15.5); WBC 12.1 k/uL (3.8-10.6)
[2017-06-03 08:29] LABS: HGB 6.8 gm/dL (11.4-16.0)
[2017-06-03] MEDS: LISINOPRIL-HCTZ 20-12.5 MG 1 EACH TAB PO SCH (08:39)
[2017-06-03 08:47] LABS: Anion Gap 9 mmol/L; Blood Urea Nitrogen 3 mg/dL (7-17); Calcium 8.2 mg/dL (8.4-10.2); Carbon Dioxide 22 mmol/L (22-30); Chloride 111 mmol/L (98-107); Glucose 99 mg/dL (74-99); Magnesium 1.6 mg/dL (1.6-2.3); Potassium 3.2 mmol/L (3.5-5.1); Sodium 142 mmol/L (137-145)
[2017-06-03] MEDS: HYDROCORTISONE SUPPOSITORY 25 MG SUPP RECTAL SCH ×2 (09:51→20:27)
[2017-06-03] MEDS ORDERED: PANTOPRAZOLE 40 MG TABLET PO STA (13:42)
[2017-06-03] MEDS ORDERED: DOCUSATE 100 MG CAP PO PRN (13:45)
--- NOTE | 2017-06-03 13:52 | P.PN ---
Subjective Progress Note Date: 06/03/17 66-year-old female seen at the bedside. Patient states feeling slightly better less abdominal cramping continues to report having stooling. States able to ambulate from the bed to the bathroom with less fatigue. Did note the hemoglobin is down to 6. 8 to receive 1 unit of packed red blood cells this morning hemoglobin the day before was 7.1 admitting hemoglobin 9.7 the potassium this morning was 3.2 Patient underwent on June 02 colonoscopy showed severe colitis of the entire colon biopsies taken. EGD showed antral gastritis large hiatal hernia esophagitis colorectal stricture Objective - Vital Signs Vital signs: Vital Signs Temp 97.4 F L 06/03/17 13:26 Pulse 77 06/03/17 13:26 Resp 16 06/03/17 13:26 BP 122/71 06/03/17 13:26 Pulse Ox 99 06/03/17 11:47 Intake & Output 06/02/17 06/03/17 06/03/17 18:59 06:59 18:59 Intake Total 900 300 310 Balance 900 300 310 Intake: IV 900 Dextrose 5%-0.9% NaCl 1, 500 000 ml @ 125 mls/hr IV . Q8H BART Rx#:[id number] Potassium Chloride 20 meq 200 In Water For Injection 1 100ml.bag @ 50 mls/hr IVPB Q2H BART Rx#: [id number] Oral 300 Blood Product 310 Rc As-1 Unit 310 [id number] Other: Voiding Method Toilet # Voids 1 - Exam Physical exam 66-year-old female sitting up in bed states less abdominal cramping less nausea vomiting tolerating diet currently denying any dizziness lightheadedness Lungs adequate air movement bilaterally on room air no cough noted no shortness of breath Heart S1-S2 audible and regular no murmur noted denying chest pain Abdomen soft nondistended bowel tones present no nausea no vomiting abdominal cramping improved Extremities no edema - Labs CBC & Chem 7: 06/03/17 07:43 06/03/17 07:43 Labs: Abnormal Lab Results - Last 24 Hours (Table) 06/02/17 06/03/17 06/03/17 Range/Units 16:50 07:11 07:43 WBC 12.1 H (3.8-10.6) k/uL RBC 3.15 L (3.80-5.40) m/uL Hgb 6.8 L* (11.4-16.0) gm/dL Hct 24.0 L (34.0-46.0) % MCV 76.2 L (80.0-100.0) fL MCH 21.5 L (25.0-35.0) pg MCHC 28.2 L (31.0-37.0) g/dL RDW 18.2 H (11.5-15.5) % Neutrophils # 8.5 H (1.3-7.7) k/uL Potassium (3.5-5.1) mmol/L Chloride (98-107) mmol/L BUN (7-17) mg/dL Creatinine (0.52-1.04) mg/dL POC Glucose (mg/dL) 102 H 105 H (75-99) mg/dL Calcium (8.4-10.2) mg/dL Crossmatch 06/03/17 06/03/17 Range/Units 07:43 08:56 WBC (3.8-10.6) k/uL RBC (3.80-5.40) m/uL Hgb (11.4-16.0) gm/dL Hct (34.0-46.0) % MCV (80.0-100.0) fL MCH (25.0-35.0) pg MCHC (31.0-37.0) g/dL RDW (11.5-15.5) % Neutrophils # (1.3-7.7) k/uL Potassium 3.2 L (3.5-5.1) mmol/L Chloride 111 H (98-107) mmol/L BUN 3 L (7-17) mg/dL Creatinine 0.49 L (0.52-1.04) mg/dL POC Glucose (mg/dL) (75-99) mg/dL Calcium 8.2 L (8.4-10.2) mg/dL Crossmatch See Detail Assessment and Plan Assessment: Impression Present on admission nausea vomiting with bright red bloody stools suspect due to colitis Computed tomography scan of the abdomen pelvis on admission showed evidence of colitis within the transverse colon and descending colon Present on admission acute blood loss anemia suspect due to a GI bleed with a colonoscopy showing severe colitis of the entire colon History of diverticulitis with a prior low anterior resection done in October 11 EGD done December 2016 showed antral gastritis esophagitis evidence of stricture hiatal hernia recent laparoscopic robotic-assisted repair of right inguinal hernia February 2017 Current every day smoker COPD no evidence of exacerbation Status post colonoscopy showing severe colitis of the entire colon with biopsies taken done on the 02 of June Status post EGD showed large hiatal hernia, esophagitis, atrophic gastritis, colorectal stricture done on June 02 Electrolyte abnormality hypokalemia Plan Agree with transfusing 1 unit of packed red blood cells monitor response Potassium to be replaced keep in a therapeutic range we'll repeat labs in the morning Will start anusol suppository twice a day Repeat labs in the morning DVT and GI prophylaxis Flagyl and Levaquin as ordered Further surgical recommendations will follow with you note dictated for dr latif The above impression and plan of care have been discussed and directed by signing physician. Ankita Garcia nurse practitioner acting as scribe for signing physician.
[2017-06-03] MEDS: POTASSIUM CHLORIDE ER 20 MEQ TAB.ER PO SCH ×2 (14:17→16:24)
[2017-06-03] MEDS: metroNIDAZOLE 500 MG TAB PO SCH ×2 (18:36→22:00)
[2017-06-03] MEDS: ATORVASTATIN 10 MG TAB PO SCH (20:26)
[2017-06-03 20:31] LABS: Anisocytosis Slight; Basophils % (A) 0 %; Eosinophils # (A) 0.1 k/uL (0-0.7); Eosinophils % (A) 1 %; HCT 29.8 % (34.0-46.0); Hypochromasia Marked; Lymphocytes # (A) 1.9 k/uL (1.0-4.8); Lymphocytes % (A) 16 %; MCH 22.1 pg (25.0-35.0); MCHC 28.9 g/dL (31.0-37.0); MCV 76.6 fL (80.0-100.0); Mean Platelet Volume 7.5; Microcytosis Slight; Monocytes # (A) 0.8 k/uL (0-1.0); Monocytes % (A) 7 %; Neutrophils # (A) 8.9 k/uL (1.3-7.7); Neutrophils % (A) 74 %; Platelet Count 346 k/uL (150-450); Poikilocytosis Moderate; RDW 18.1 % (11.5-15.5); WBC 12.1 k/uL (3.8-10.6)
[2017-06-03 20:38] LABS: HGB 8.6 gm/dL (11.4-16.0)
[2017-06-03] MEDS ORDERED: LEVOFLOXACIN 500 MG TAB PO SCH (21:00)
[2017-06-03 21:30] VITALS: RESP 18
[2017-06-03] MEDS: LACTATED RINGERS 1,000 ML IV SCH (21:57)
[2017-06-04] MEDS ORDERED: PANTOPRAZOLE 40 MG TABLET PO SCH (07:30)
[2017-06-04 07:38] VITALS: BP 125/59; PULSE 62; TEMP 98.1
--- NOTE | 2017-06-04 08:21 | P.DS ---
Providers Date of admission: 05/30/17 19:36 Attending physician: Amadeo Manjarrez Consults: 05/30/17 18:59 Consult Physician ONCE Consulting Provider: Duglas Man Consult Reason/Comments: GI bleed Do you want consulting provider notified?: Yes Primary care physician: Amadeo Manjarrez - Discharge Diagnosis(es) (1) GI bleed Current Visit: Yes Status: Acute (2) Colitis Current Visit: Yes Status: Resolved (3) COPD (chronic obstructive pulmonary disease) Current Visit: Yes Status: Chronic (4) Diverticulitis Current Visit: No Status: Chronic Hospital Course: The patient was essentially admitted for transverse and descending colon colitis. After appropriate antibiotic treatment and stabilization, she had endoscopic procedure and improved significantly. The patient is not tolerating diet. We'll long discussion regarding tobacco cessation and she'll start Chantix. The patient will follow-up with me in about 7 days. Patient Condition at Discharge: Stable Plan - Discharge Summary Discharge Rx Participant: Yes New Discharge Prescriptions: New Varenicline Tartrate [Chantix Starter Pack] 0.5 mg PO DIRECTED #53 tab Levofloxacin [Levaquin] 500 mg PO HS #7 tab metroNIDAZOLE [Flagyl] 500 mg PO QID #28 tab Continue buPROPion XL [Wellbutrin XL] 300 mg PO DAILY Simvastatin [Zocor] 20 mg PO HS Lisinopril-Hctz 20-12.5 mg [Zestoretic 20-12.5] 1 tab PO DAILY Gemfibrozil [Lopid] 600 mg PO BID Omeprazole 40 mg PO QAM Pseudoephedrine [Sudafed] 30 - 60 mg PO Q4H PRN PRN Reason: ALLERGIES/SINUS Krill/Om-3/Dha/Epa/Phospho/Ast [[place]-3 Krill Oil 300 mg Sfgl] 1 cap PO DAILY Albuterol Sulfate [Proventil Hfa] 1 - 2 puff INHALATION RT-QID PRN PRN Reason: COPD HYDROcodone/APAP 7.5-325MG [Edwards 7.5-325] 1 tab PO DAILY PRN PRN Reason: Pain Docusate [Colace] 100 mg PO BID #20 capsule Discharge Medication List Gemfibrozil [Lopid] 600 mg PO BID 11/29/15 [History] Lisinopril-Hctz 20-12.5 mg [Zestoretic 20-12.5] 1 tab PO DAILY 11/29/15 [History ] Omeprazole 40 mg PO QAM 11/29/15 [History] Simvastatin [Zocor] 20 mg PO HS 11/29/15 [History] buPROPion XL [Wellbutrin XL] 300 mg PO DAILY 11/29/15 [History] Albuterol Sulfate [Proventil Hfa] 1 - 2 puff INHALATION RT-QID PRN 09/30/16 [ History] Krill/Om-3/Dha/Epa/Phospho/Ast [[place]-3 Krill Oil 300 mg Sfgl] 1 cap PO DAILY [History] Pseudoephedrine [Sudafed] 30 - 60 mg PO Q4H PRN 09/30/16 [History] HYDROcodone/APAP 7.5-325MG [Edwards 7.5-325] 1 tab PO DAILY PRN 11/23/16 [History] Docusate [Colace] 100 mg PO BID #20 capsule 03/10/17 [Rx] Levofloxacin [Levaquin] 500 mg PO HS #7 tab 06/04/17 [Rx] Varenicline Tartrate [Chantix Starter Pack] 0.5 mg PO DIRECTED #53 tab [Rx] metroNIDAZOLE [Flagyl] 500 mg PO QID #28 tab 06/04/17 [Rx] Follow up Appointment(s)/Referral(s): Amadeo Manjarrez MD [Primary Care Provider] - 1-2 days Patient Instructions/Handouts: Low Fiber Diet (GEN), Diverticulitis Diet (GEN)
[2017-06-04] MEDS: DEXTROSE 5%-0.9% NACL 1,000 ML IV SCH (08:55)
[2017-06-04] MEDS: GEMFIBROZIL 600 MG TAB PO SCH ×2 (08:55→08:59)
[2017-06-04] MEDS: buPROPion XL 300 MG TAB.ER.24H PO SCH (08:55)
[2017-06-04] MEDS: SUCRALFATE 1 GM TAB PO SCH (08:55)
[2017-06-04] MEDS: metroNIDAZOLE 500 MG TAB PO SCH (08:55)
[2017-06-04] MEDS: LISINOPRIL-HCTZ 20-12.5 MG 1 EACH TAB PO SCH (08:55)
[2017-06-04] MEDS: HYDROCORTISONE SUPPOSITORY 25 MG SUPP RECTAL SCH (08:58)
[2017-06-04 10:26] LABS: ALT 15 U/L (9-52); AST 15 U/L (14-36); Albumin 2.8 g/dL (3.5-5.0); Alkaline Phosphatase 63 U/L (38-126); Anion Gap 13 mmol/L; Blood Urea Nitrogen 3 mg/dL (7-17); Calcium 8.9 mg/dL (8.4-10.2); Carbon Dioxide 19 mmol/L (22-30); Chloride 113 mmol/L (98-107); Glucose 132 mg/dL (74-99); Potassium 4.4 mmol/L (3.5-5.1); Sodium 145 mmol/L (137-145); Total Bilirubin 0.2 mg/dL (0.2-1.3); Total Protein 5.3 g/dL (6.3-8.2)
--- NOTE | 2017-06-08 09:31 | CDI ---
Documentation Clarification Form Date: 06/08/2017 12:00:00 AM From: BRANDON Saenz; Gladys [employer] Production Worker Phone: If you have a question about this query, please contact Gladys [employer] Production Worker at [phone] between 8am and 5pm. Admit Date: 05/30/2017 7:36:00 PM Patient Name: Mai Lema Visit Number: [id number] Discharge Date: 06/04/2017 ATTENTION: The Clinical Documentation Specialists (CDI) and [facility] Coding Staff appreciate your assistance in clarifying documentation. Please respond to the clarification below the line at the bottom and electronically sign. The CDI & [facility] Coding staff will review the response and follow-up if needed. Please note: Queries are made part of the Legal Health Record. If you have any questions, please contact the author of this message via ITS. Dr. Amadeo Manjarrez The patient presented with GI bleed and abdominal pain. She was treated with IV antibiotics. The findings on colonoscopy: severe colitis of entire colon, and biopsies were taken. The final diagnosis of the pathology report states; Acute ischemic type colitis with ulceration. In your professional opinion, do you agree with the pathology report? Yes No Other (please specify) Unable to determine MTDD
== END 2017-06-04 09:52 | disposition home or self-care (01) | DRG 385 ==
LOC: EC 15:52 → 4MS4W 19:36
PROVIDERS: ADMIT Family Medicine; ATTEND Family Medicine
PROC: 0DB58ZX Excision of Esophagus, Via Natural or Artificial Opening Endoscopic, Diagnostic (ICD-10-PCS; principal; 2017-06-02 13:00)
PROC: 0DBE8ZX Excision of Large Intestine, Via Natural or Artificial Opening Endoscopic, Diagnostic (ICD-10-PCS; principal; 2017-06-02 13:00)
PROC: 0DB68ZX Excision of Stomach, Via Natural or Artificial Opening Endoscopic, Diagnostic (ICD-10-PCS; principal; 2017-06-02 13:00)
DX: K51.812 Other ulcerative colitis with intestinal obstruction (principal); K55.039 Acute (reversible) ischemia of large intestine, extent unspecified; K57.92 Diverticulitis of intestine, part unspecified, without perforation or abscess without bleeding; D62 Acute posthemorrhagic anemia; J44.9 Chronic obstructive pulmonary disease, unspecified; E78.5 Hyperlipidemia, unspecified; E87.6 Hypokalemia; F17.200 Nicotine dependence, unspecified, uncomplicated; F32.9 Major depressive disorder, single episode, unspecified; F41.9 Anxiety disorder, unspecified; I10 Essential (primary) hypertension; K21.0 Gastro-esophageal reflux disease with esophagitis; K29.60 Other gastritis without bleeding; K40.90 Unilateral inguinal hernia, without obstruction or gangrene, not specified as recurrent; K44.9 Diaphragmatic hernia without obstruction or gangrene; M19.90 Unspecified osteoarthritis, unspecified site; Z79.899 Other long term (current) drug therapy; Z87.11 Personal history of peptic ulcer disease; M54.9 Dorsalgia, unspecified; G89.29 Other chronic pain; Z98.42 Cataract extraction status, left eye; Z98.41 Cataract extraction status, right eye; Z79.891 Long term (current) use of opiate analgesic
CPT/HCPCS: 36415; 43239; 45380; 74018; 74177; 80048; 80053; 81003; 82150; 82272; 83605; 83690; 83735; 85025; 85027; 86850; 86900; 86901; 86920; 87324; 88305; 88342; 96361; 96365; 96375; 99285

== ENCOUNTER → 2017-07-27 | Outpatient (CLI) | payer BC, MEDICARE ==
[2017-07-27 11:09] LABS: ALT 24 U/L (9-52); AST 17 U/L (14-36); Cholesterol 134 mg/dL (<200); HDL Cholesterol 45 mg/dL (40-60); LDL Cholesterol,Calculated 63 mg/dL (0-99); Triglycerides 130 mg/dL (<150)
== END | disposition home or self-care (01) ==
LOC: LABWHC1 09:42
PROVIDERS: ATTEND Internal Medicine Interventional Cardiology
DX: E78.2 Mixed hyperlipidemia (principal)
CPT/HCPCS: 36415; 80061; 84450; 84460

== ENCOUNTER → 2017-09-28 | Outpatient (CLI) | payer BC, MEDICARE ==
[2017-09-28 17:35] LABS: Anisocytosis Slight; HCT 32.4 % (34.0-46.0); Hypochromasia Marked; MCH 26.2 pg (25.0-35.0); MCHC 30.9 g/dL (31.0-37.0); MCV 84.7 fL (80.0-100.0); Platelet Count 363 k/uL (150-450); RBC 3.82 m/uL (3.80-5.40); RDW 17.3 % (11.5-15.5); WBC 8.5 k/uL (3.8-10.6)
[2017-09-28 17:37] LABS: Anion Gap 9 mmol/L; Carbon Dioxide 23 mmol/L (22-30); Chloride 107 mmol/L (98-107); Potassium 4.3 mmol/L (3.5-5.1); Sodium 139 mmol/L (137-145)
[2017-09-28 17:58] LABS: Blood Urea Nitrogen 15 mg/dL (7-17)
== END | disposition home or self-care (01) ==
LOC: LABPAT 16:36
PROVIDERS: ATTEND Internal Medicine Interventional Cardiology
DX: Z01.812 Encounter for preprocedural laboratory examination (principal); I10 Essential (primary) hypertension; E78.2 Mixed hyperlipidemia; R94.39 Abnormal result of other cardiovascular function study
CPT/HCPCS: 36415; 80051; 82565; 84520; 85027

== ENCOUNTER → 2017-10-11 | Day surgery (SDC) | payer BC, MEDICARE ==
[2017-10-07 10:51] VITALS: BMI 20.1
[~2017-10-11] MED LIST changes: +ALPRAZolam 0.25 MG TAB PO PRN; +ASPIRIN 325 MG TAB PO ONE; +ASPIRIN 81 MG PO SCH; +ATORVASTATIN 80 MG TAB PO STA; +CALCIUM CARBONATE 500 MG CHEWABLE PO SCH; -CLINDAMYCIN 900 MG in DEXTROSE 5% IN WATER 50 ML IVPB ONE; -DEXAMETHASONE SOD PHOSPHATE 10 MG/ML 1 ML VIAL IV ONE; +HEPARIN SODIUM 1,000 UN/ML (10ML VL) IV ONE; +HEPARIN SODIUM 1,000 UN/ML (10ML VL) ONE; -HEPARIN SODIUM,PORCINE 5,000 UNIT/ML 1 ML VIAL SQ ONE; +HYDROcodone/APAP 7.5-325MG 1 EACH TAB PO PRN; -LACTATED RINGERS 1,000 ML IV ONE; -LEVOFLOXACIN 500MG-D5W PMX 500 MG in DEXTROSE/WATER 1 100ML.BAG IVPB ONE; -LIDOCAINE 1% 20 ML VIAL (10MG/ML) FOR IV START INTRADERMA PRN; +LIDOCAINE 1% INJ 10MG/ML (20 ML MDV) ONE; +LIDOCAINE 1% INJ 10MG/ML (20 ML MDV) SQ ONE; +LISINOPRIL-HCTZ 20-12.5 MG 1 EACH TAB PO SCH; +MIDAZOLAM 2 MG/2 ML VIAL IVP ONE; +MIDAZOLAM 2 MG/2 ML VIAL ONE; +MULTIVITAMIN PO SCH; +NITROGLYCERIN SL TABS 0.4 MG TAB SUBLINGUAL PRN; +NON-FORMULARY DRUG (Krill/Om-3/Dha/Epa/Phospho/Ast [Omega-3 Krill Oil 300 Mg Sfgl] 1 CAP) PO SCH; +NON-FORMULARY DRUG (Omeprazole [Omeprazole] 20 MG) PO SCH; +NON-FORMULARY DRUG (Omeprazole [Omeprazole] 40 MG) PO SCH; -ONDANSETRON 4 MG/2 ML VIAL IVP ONE; +RX INFO: IV CONTRAST WAS GIVEN 1 EACH MISC MISCELLANE PRN; +SODIUM CHLORIDE 0.9% 1,000 ML IV ONE; +SODIUM CHLORIDE 0.9% 1,000 ML IV SCH; +SODIUM CHLORIDE 0.9% 1,000 ML in EMPTY BAG 1 BAG IV ONE; +VARENICLINE 1 MG TAB PO SCH; +VERAPAMIL 2.5 MG/ML 2 ML AMP ONE; +VERAPAMIL SYRINGE (5 MG/10 ML) INTRAARTER ONE; +buPROPion XL 300 MG TAB.ER.24H PO SCH; +fentaNYL (PF) 50 MCG/ML 2 ML AMP IV ONE; +fentaNYL (PF) 50 MCG/ML 2 ML AMP ONE
[2017-10-11 07:11] VITALS: RESP 18
[2017-10-11 08:26] VITALS: TEMP 98
--- NOTE | 2017-10-11 08:28 | CC ---
CARDIAC CATHETERIZATION REPORT Mrs. Lema is a 67-year-old female with known history of hypertension, hyperlipidemia, chronic tobacco use, and peripheral vessel disease who has recently underwent a myocardial perfusion imaging that revealed evidence of inducible ischemia involving the mid anterior wall. In view of that, recommendation was made regarding cardiac catheterization. The procedure as well as the risks and complications were discussed with the patient who is in full understanding and agreement. PROCEDURE: Patient was brought to the research laboratory manager in a fasting semi-sedated state after receiving fentanyl Benadryl and achieving moderate conscious sedated state. Using Xylocaine anesthesia in the Seldinger technique a 6-Moldovan sheath was introduced in the right radial artery. Selective right and left coronary angiography performed using 5-Moldovan 3.5 bend right and left Александр catheter. Multiple views of the coronary artery including hemiaxial views were obtained. Following that 5-Moldovan tight pigtail catheter was introduced in the left ventricle and a 30 degree JACKSON view of the left ventricle was obtained. Following that, catheter and sheath were removed. Hemostasis was obtained with deployment of a TR band. There was no immediate complication. Patient was returned to her room in stable condition. Of note, the patient received 3000 units of intravenous heparin as well as intra-arterial verapamil. FINDINGS: LEFT MAIN: This is a short size vessel bifurcating in left circumflex, left anterior descending artery. Left main coronary artery has no evidence of high-grade stenosis. LEFT ANTERIOR DESCENDING ARTERY: This is a large-sized vessel reaching toward the apex with a wraparound apex segment giving rise to a moderately sized diagonal branch. In mid segment prior to the takeoff of diagonal branch, there is a 20% plaque. The rest of the vessel has no high-grade stenosis. LEFT CIRCUMFLEX: This is a nondominant vessel giving rise to a large obtuse marginal branch. The proximal left circumflex prior to the takeoff of the obtuse marginal branch has a 10% to 20% plaque with no evidence of high-grade stenosis. RIGHT CORONARY ARTERY: This is a dominant vessel bifurcating distally PDA and posterolateral segment and branches. The mid segment of the right coronary artery has mild intimal plaque of 20%. The rest of the vessel has no high-grade stenosis. LEFT VENTRICULOGRAM: Left ventriculogram is performed in 30 degree JACKSON view and revealed normal left ventricular size and systolic function. Ejection fraction is 60%. HEMODYNAMICS: There was no gradient across the aortic valve. The left ventricular end- diastolic pressure was 14 to16 mmHg. CONCLUSION: 1. Mild triple-vessel coronary artery disease. 2. Normal left ventricular size and systolic function. RECOMMENDATION: In view of finding anatomy, I recommend to continue medical therapy with aggressive coronary risk modifications that have been initiated. Those findings and recommendation were discussed with the patient and her family and they are in full understanding and agreement. Duration of procedure 16 minutes. MMODL / IJN: [id number] /
--- NOTE | 2017-10-11 08:34 | LTR ---
October 11, 2017 Re: Mai Lema Dear Dr. Manjarrez: I had the opportunity to perform cardiac catheterization on Mrs. Lema at [facility] on the 11 of October and a full copy of the procedure note will be forwarded to you. In brief, she was found to have mild intimal disease without any evidence of high-grade stenosis and based on those findings I recommend continue medical therapy with aggressive coronary risk modifications that have been initiated. Thank you again for allowing me the opportunity to participate in her care. Please feel free to call for any questions. Sincerely yours, Delroy Mosqueda MD [facility]MCASSIEL / RADHAN: [id number] /
[2017-10-11 13:07] VITALS: BP 124/64; PULSE 77
== END | disposition home or self-care (01) ==
LOC: CATHCVL 06:32
PROVIDERS: ATTEND Internal Medicine Interventional Cardiology
DX: I25.10 Atherosclerotic heart disease of native coronary artery without angina pectoris (principal); I10 Essential (primary) hypertension; F17.210 Nicotine dependence, cigarettes, uncomplicated; E78.2 Mixed hyperlipidemia; I73.9 Peripheral vascular disease, unspecified; Z88.0 Allergy status to penicillin; I65.23 Occlusion and stenosis of bilateral carotid arteries; Z79.899 Other long term (current) drug therapy
CPT/HCPCS: 93458; C1894; C1769; J2250; J2001; J3010; J1644

== ENCOUNTER → 2019-02-20 | Outpatient (CLI) | payer BC, MEDICARE ==
[~2019-02-20] MED LIST changes: -ALPRAZolam 0.25 MG TAB PO PRN; -ASPIRIN 325 MG TAB PO ONE; -ASPIRIN 81 MG PO SCH; -ATORVASTATIN 80 MG TAB PO STA; -CALCIUM CARBONATE 500 MG CHEWABLE PO SCH; +DENOSUMAB 60 MG/ML 1 ML SYRINGE SQ ONE; -HEPARIN SODIUM 1,000 UN/ML (10ML VL) IV ONE; -HEPARIN SODIUM 1,000 UN/ML (10ML VL) ONE; -HYDROcodone/APAP 7.5-325MG 1 EACH TAB PO PRN; -LIDOCAINE 1% INJ 10MG/ML (20 ML MDV) ONE; -LIDOCAINE 1% INJ 10MG/ML (20 ML MDV) SQ ONE; -LISINOPRIL-HCTZ 20-12.5 MG 1 EACH TAB PO SCH; -MIDAZOLAM 2 MG/2 ML VIAL IVP ONE; -MIDAZOLAM 2 MG/2 ML VIAL ONE; -MULTIVITAMIN PO SCH; -NITROGLYCERIN SL TABS 0.4 MG TAB SUBLINGUAL PRN; -NON-FORMULARY DRUG (Krill/Om-3/Dha/Epa/Phospho/Ast [Omega-3 Krill Oil 300 Mg Sfgl] 1 CAP) PO SCH; -NON-FORMULARY DRUG (Omeprazole [Omeprazole] 20 MG) PO SCH; -NON-FORMULARY DRUG (Omeprazole [Omeprazole] 40 MG) PO SCH; -RX INFO: IV CONTRAST WAS GIVEN 1 EACH MISC MISCELLANE PRN; -SODIUM CHLORIDE 0.9% 1,000 ML IV ONE; -SODIUM CHLORIDE 0.9% 1,000 ML IV SCH; -SODIUM CHLORIDE 0.9% 1,000 ML in EMPTY BAG 1 BAG IV ONE; -VARENICLINE 1 MG TAB PO SCH; -VERAPAMIL 2.5 MG/ML 2 ML AMP ONE; -VERAPAMIL SYRINGE (5 MG/10 ML) INTRAARTER ONE; -buPROPion XL 300 MG TAB.ER.24H PO SCH; -fentaNYL (PF) 50 MCG/ML 2 ML AMP IV ONE; -fentaNYL (PF) 50 MCG/ML 2 ML AMP ONE
[2019-02-20 14:26] VITALS: BP 143/85; PULSE 79; RESP 16; TEMP 98
== END | disposition home or self-care (01) ==
LOC: PROCWHC3 14:08
PROVIDERS: ATTEND Family Medicine
DX: M81.0 Age-related osteoporosis without current pathological fracture (principal)
CPT/HCPCS: 96372

== ENCOUNTER → 2019-08-23 | Outpatient (CLI) | payer BC, MEDICARE ==
[~2019-08-23] MED LIST changes: +DENOSUMAB 60 MG/ML 1 ML SYRINGE SQ NR; -DENOSUMAB 60 MG/ML 1 ML SYRINGE SQ ONE
[2019-08-23 14:30] VITALS: BP 115/72; PULSE 85; RESP 16; TEMP 97.8
== END | disposition home or self-care (01) ==
LOC: PROCWHC3 14:18
PROVIDERS: ATTEND Family Medicine
DX: M81.0 Age-related osteoporosis without current pathological fracture (principal)
CPT/HCPCS: 96372; J0897

== ENCOUNTER → 2020-02-27 | Outpatient (CLI) | payer BC, MEDICARE ==
[2020-02-27 13:10] VITALS: BP 148/80; PULSE 85; RESP 16; TEMP 97.7
== END | disposition home or self-care (01) ==
LOC: PROCWHC3 12:58
DX: M81.0 Age-related osteoporosis without current pathological fracture (principal)
CPT/HCPCS: 96372; J0897

== ENCOUNTER → 2020-03-25 | Outpatient (CLI) | payer BC, MEDICARE ==
--- NOTE | 2020-03-26 05:41 | CT ---
EXAMINATION TYPE: CT chest wo con DATE OF EXAM: 03/25/2020 COMPARISON: 01/08/2015 HISTORY: Follow up for COPD. CT DLP: 142.2 mGycm Automated exposure control for dose reduction was used. Images were obtained from the thoracic inlet to the diaphragm without contrast. FINDINGS: There is mild diffuse pulmonary emphysema. There is pulmonary hyperinflation and flattening of the di aphragm. There is no pleural effusion. There is some minimal reticular interstitial infiltrate at the lung bases bilaterally. Heart is shifted slightly to the left side. There is increased left paraspin al density in the left lower lobe consistent with almost complete atelectasis of the left lower lobe. I do not see a hilar pulmonary mass. There is occlusion of the left lower lobe bronchus. The bony thorax is intact. There is no thoracic compression fracture. Sternum is intact. Heart size i s normal. There is no pericardial effusion. Upper abdominal soft tissues are intact. Abdominal aorta is atheromatous. There is no adrenal mass. There is 3 mm calculus upper pole left kidney. IMPRESSION: Compared to old exam there is development of complete atelectasis left lower lobe with obstruction le ft lower lobe bronchus. Nature of the obstruction is not identified. Bronchoscopy would be helpful for further evaluation if clinically indicated. Pulmonary emphysema.
== END | disposition home or self-care (01) ==
LOC: RADCTMAIN 18:34
PROVIDERS: ATTEND Family Medicine
DX: J43.9 Emphysema, unspecified (principal); J98.11 Atelectasis
CPT/HCPCS: 71250

== ENCOUNTER → 2020-08-26 | Outpatient (CLI) | payer BC, MEDICARE ==
[2020-08-26 10:58] VITALS: BP 100/61; PULSE 78; TEMP 98.3
--- NOTE | 2020-08-26 11:16 | P.PAINCN ---
History of Present Illness - Reason for Consult Consult date: 08/26/20 - History of Present Illness This is 69 years old female with a chronic history of severe low back pain with radiation to the right lower extremity started 5 years ago, he denies any initiating event and she reported that the intensity of the pain is increased over time, and is constant, increased with any activity interfere with the quality of life,, patient tried oral pain medication Percocet without any significant improvement, she tried steroid orally and injection and she tried ice treatment, and she tried activity modification and home exercise without any significant benefit, she denies any motor or sensory deficit she denies any fever or night sweats which she denies any change in the bowel movement or urination Past Medical History Past Medical History: COPD, GERD/Reflux, Hyperlipidemia, Hypertension, Osteoarthritis (OA), Pneumonia Additional Past Medical History / Comment(s): HEART MURMUR. HX OF bleeding "DUODENAL ULCER-" DIVERTICULITIS. CHRONIC BACK PAIN. HX infection rt kidney-had surgery to remove part of kidney, hiatal hernia, cyst on thyroid, History of Any Multi-Drug Resistant Organisms: None Reported Past Surgical History: Bowel Resection, Section, Hernia Repair Additional Past Surgical History / Comment(s): X3. RT KIDNEY REPAIR (27 YRS OLD) due to infection. BILAT CATARACTS. colon resection r/t diverticulitis Past Anesthesia/Blood Transfusion Reactions: Motion Sickness Additional Past Anesthesia/Blood Transfusion Reaction / Comm: motion sickness in past Smoking Status: Current every day smoker - Past Family History Mother Family Medical History: No Reported History Medications and Allergies Home Medications Medication Instructions Recorded Confirmed Type Lisinopril-Hctz 20-12.5 mg 1 tab PO DAILY 11/29/15 08/26/20 History [Zestoretic 20-12.5] Omeprazole 40 mg PO QAM 11/29/15 08/26/20 History Simvastatin [Zocor] 20 mg PO HS 11/29/15 08/26/20 History buPROPion XL [Wellbutrin XL] 300 mg PO DAILY 11/29/15 08/26/20 History Albuterol Sulfate [Proventil Hfa] 1 - 2 puff INHALATION QID PRN 09/30/16 08/26/20 History Multivitamin [Multivitamins Adult 2 each PO DAILY 10/07/17 08/26/20 History Gummies] Omeprazole 20 mg PO HS 10/07/17 08/26/20 History Aspirin 325 mg PO DAILY 08/23/20 08/26/20 History Gabapentin 300 mg PO TID 08/23/20 08/26/20 History oxyCODONE HCL/ACETAMINOPHEN 1 tab PO TID PRN 08/23/20 08/26/20 History [Endocet 10-325 mg] Allergies Allergy/AdvReac Type Severity Reaction Status Date / Time Penicillins Allergy Unknown Swelling Verified 08/23/20 14:16 Physical Exam Vitals: Vital Signs Temp Pulse BP Pulse Ox 08/26/20 10:51 98.3 F 78 100/61 97 Physical Examinations : -Constitutiona : Cooperative , not in acute distress . -HEENT : nech : supple , no Lymphadenopathy , normal thyroid size . : eyes : no ptosis , no icterus, no photophobia . - neurologic : Cranial nerve II to XII intact , no focal neurological deffecit . -psychatric : alert , oriented X 3 , appropriate affect , intact judgment and insight . -Lymphatic : no Lymphadenopathy . - musculoskeltal : Cervical Spine motor stregnth in the deltoid and biceps, normal right side , normal Left side motor stregnth biceps and the wrist extensors normal right side ,normal left side . motor stregnth in the triceps muscle . normal Right side , normal Left side Lumber spine moter stegnth lower extremities ,thigh and legs 5/5 Right side , 5/5 Left side deep tendon reflexes : normal Knee Jerk , normal ankle Jerk lumber facet Loading Test =positive Right . Range of motion of the lumbar spine Flexion 30 degrees, extension 10 degrees strait leg raising test = negative bilaterally Fabere test= negative bilaterally. Sever tenderness over the Sacroiliac joint on the Right Gaenslen test= positive right . Seated flexion test= positive right. Distraction test= positive right side Results Comments: MRI of the lumbar spine multilevel lumbar disc desiccation multilevel lumbar facet arthrosis multilevel lumbar foraminal narrowing mostly at L3 4 L4 5 and L5-S1 Assessment and Plan Plan: Assessment and plan=1-lumbar radiculopathy. 2-right sacroiliitis. 3-lumbar foraminal stenosis. 4-lumbar spondylosis and lumbar facet arthropathy. Patient could benefit from right-sided transforaminal epidural steroid injection at the L3-4, and L4-5 Time with Patient: Greater than 30 PQRS Measure Charge Sheet Measure #130: Documentation of Current Meds in Medical Chart: Patient's medications documented in chart Measure #226: Tobacco Use: Screen & Cessation Intervention: Pt screened for tobacco use AND intervention given Measure #111: Pneumonia Vaccination: Pneumococcal vaccine administered or previously received Measure #47: Advance Care Plan: Advance care planning discussed & documented, pt chose/unable to give Measure #412: Opioid Treatment Agreement: No documentation of signed opioid treatment agreement Measure #408: Opioid Therapy Follow-up Evaluation: Patient had NO f/u eval minimum every 3 months during opioid therapy Measure #317: Preventitive Care & Scrn High Bld Press & F/U: Normal blood pre ssure, f/u not required Measure #128: Body Mass Index (BMI) Screening & Follow-up: BMI documented BELOW normal parameters - f/u documented Measure #131: Pain Assessment & Follow-up: Pain positive & plan documented Measure #431: Unhealthy Alcohol Use Preventative Care & Scrn: Patient not identified as an unhealthy alcohol user PQRS Narrative: Smoking Status Current every day smoker Blood Pressure 100/61 Pain Intensity [Lower Back] 5 Scale Used Numeric (1 - 10) Hx Alcohol Use (MH) No Home Medications: Ambulatory Orders Lisinopril-Hctz 20-12.5 mg [Zestoretic 20-12.5] 1 tab PO DAILY 11/29/15 Omeprazole 40 mg PO QAM 11/29/15 Simvastatin [Zocor] 20 mg PO HS 11/29/15 buPROPion XL [Wellbutrin XL] 300 mg PO DAILY 11/29/15 Albuterol Sulfate [Proventil Hfa] 1 - 2 puff INHALATION QID PRN 09/30/16 Multivitamin [Multivitamins Adult Gummies] 2 each PO DAILY 10/07/17 Omeprazole 20 mg PO HS 10/07/17 Aspirin 325 mg PO DAILY 08/23/20 Gabapentin 300 mg PO TID 08/23/20 oxyCODONE HCL/ACETAMINOPHEN [Endocet 10-325 mg] 1 tab PO TID PRN 08/23/20
== END ==
LOC: PNWHC3 10:42
PROVIDERS: ATTEND Specialist
DX: M48.061 Spinal stenosis, lumbar region without neurogenic claudication (principal); M47.26 Other spondylosis with radiculopathy, lumbar region; M46.1 Sacroiliitis, not elsewhere classified; J44.9 Chronic obstructive pulmonary disease, unspecified; E78.5 Hyperlipidemia, unspecified; I10 Essential (primary) hypertension; M19.90 Unspecified osteoarthritis, unspecified site; K21.9 Gastro-esophageal reflux disease without esophagitis; F17.200 Nicotine dependence, unspecified, uncomplicated; Z79.899 Other long term (current) drug therapy; Z79.82 Long term (current) use of aspirin; Z88.0 Allergy status to penicillin
CPT/HCPCS: 99211

== ENCOUNTER 2020-10-15 11:52 | Day surgery (SDC) | payer BC, MEDICARE ==
[~2020-10-15 11:52] MED LIST changes: -DENOSUMAB 60 MG/ML 1 ML SYRINGE SQ NR; +LACTATED RINGERS 1,000 ML IV SCH
[2020-10-15 12:49] VITALS: TEMP 97.8
[2020-10-15] MEDS ORDERED: LACTATED RINGERS 1,000 ML IV ONE (12:49)
[2020-10-15] MEDS ORDERED: LIDOCAINE 1% INJ 10MG/ML (20 ML MDV) ONE (13:10)
[2020-10-15] MEDS ORDERED: IOPAMIDOL M200 10 ML VIAL ONE (13:10)
[2020-10-15] MEDS ORDERED: MIDAZOLAM 2 MG/2 ML VIAL ONE (13:10)
[2020-10-15] MEDS ORDERED: fentaNYL (PF) 50 MCG/ML 2 ML AMP ONE (13:10)
[2020-10-15] MEDS ORDERED: DEXAMETHASONE SOD PHOSPHATE 10 MG/ML 1 ML VIAL ONE (13:10)
--- NOTE | 2020-10-15 13:33 | P.PCN ---
Date of Procedure: 10/15/20 Surgeon: Ayala Herndon Pathology: none sent Condition: stable Disposition: PACU Description of Procedure: PREOPERATIVE DIAGNOSIS: Lumbar radiculopathy POSTOPERATIVE DIAGNOSIS: Lumbar radiculopathy PROCEDURE 1. Transforaminal epidural steroid injection under fluoroscopic guidance at L3- 4, and L4-5 on the right side 2. Lumbar epidurogram. SURGEON: Ayala Herndon MD ANESTHESIA: Local with 1% lidocaine; IV sedation with Versed and fentanyl. EBL: Minimal PROCEDURE INDICATION: The patient with low back pain and radiculopathy symptoms unresponsive to conservative treatment. PROCEDURE DESCRIPTION / TECHNIQUE: The patient was seen and identified in the preoperative area. Risks, benefits, complications, and alternatives were discussed with the patient. The patient agreed to proceed with the procedure and signed the consent. IV was started, and vital signs were stable. Patient was taken to the OR and time out was completed. The patient was placed in the prone position on procedure table and a pillow was placed under the abdomen to reduce lumbar lordosis. The lumbosacral area was prepped and draped in the usual sterile fashion. Critical pause was taken. Vital signs were closely monitored during the procedure. Conscious sedation was used during the procedure to decrease patients anxiety. The vertebral body of the lumbar vertebra L3 was squared off by tilting the C-arm cephalad then the C-arm was tilted to the oblique position and the target point was at the 6 o'clock position of the pedicle of then skin and deeper tissues were localized with 1% lidocaine. Subsequently, a 22-gauge 3.5- inch spinal needle was advanced under a tunneled view fluoroscopic guidance just underneath the chin of the Scooter dog at the . Under lateral fluoroscopy, the needle was then advanced to the middle of the upper one third of the foramen between( L3,L4). After negative aspiration of CSF and blood and with no paresthesias, 1 mL of omnipaque contrast dye was injected excellent epidurogram and outlining of the L nerve root was identified. Subsequently, 1.5 mL of block solution containing 5 mg of Decadron and 1 mL of Lidocaine 1% PF was injected. Needle was removed intact . The procedure was repeated at the L4-5 level in the right side in the same manner. At the end of the procedure, skin was cleansed, and bandages were applied. COMPLICATIONS: None COMMENTS: DISPOSITION / PLANS: The patient was placed in a supine position and transferred to the recovery area in a stable condition for observation. There was no evidence of lower extremity motor or sensory deficit after the procedure. Patient was discharged from the recovery room after meeting discharge criteria. Home discharge instructions were given to the patient by the staff.
[2020-10-15] MEDS ORDERED: IV FLUID CONTINUATION 1,000 ML IV ONE (13:37)
[2020-10-15 13:53] VITALS: RESP 16
--- NOTE | 2020-10-15 13:55 | FL ---
Fluoroscopy History: TRANS EPI STER INJ TRANSFORAMINAL EPIDURAL STEROID INJECTION, 26SEC FL TIME
[2020-10-15 14:02] VITALS: BP 95/63; PULSE 60
== END 2020-10-15 14:18 | disposition home or self-care (01) ==
LOC: ORPAIN 11:52
PROVIDERS: ATTEND Anesthesiology
DX: M54.16 Radiculopathy, lumbar region (principal); Z88.0 Allergy status to penicillin; I10 Essential (primary) hypertension; Z98.51 Tubal ligation status
CPT/HCPCS: 64483; 64484; J2250; J1100; J2001; J3010; Q9966; 99152

== ENCOUNTER 2020-11-05 12:00 | Day surgery (SDC) | payer BC, MEDICARE ==
[2020-11-01 15:50] VITALS: BMI 20.1
[2020-11-05 12:16] VITALS: RESP 16; TEMP 97.6
[2020-11-05] MEDS ORDERED: LIDOCAINE 1% (10MG/ML) FOR IV START INTRADERMA ONE (12:19)
[2020-11-05] MEDS ORDERED: MIDAZOLAM 2 MG/2 ML VIAL ONE (12:33)
[2020-11-05] MEDS ORDERED: fentaNYL (PF) 50 MCG/ML 2 ML AMP ONE (12:33)
[2020-11-05] MEDS ORDERED: IOPAMIDOL M200 10 ML VIAL ONE (12:33)
[2020-11-05] MEDS ORDERED: LIDOCAINE 1% INJ 10MG/ML (20 ML MDV) ONE (12:33)
[2020-11-05] MEDS ORDERED: DEXAMETHASONE SOD PHOSPHATE 10 MG/ML 1 ML VIAL ONE (12:33)
--- NOTE | 2020-11-05 12:48 | P.PCN ---
Date of Procedure: 11/05/20 Surgeon: Ayala Herndon Pathology: none sent Condition: stable Disposition: PACU Description of Procedure: PREOPERATIVE DIAGNOSIS: Lumbar radiculopathy POSTOPERATIVE DIAGNOSIS: Lumbar radiculopathy PROCEDURE 1. Transforaminal epidural steroid injection under fluoroscopic guidance at L3-4 on the right side 2. Lumbar epidurogram. SURGEON: Ayala Herndon MD ANESTHESIA: Local with 1% lidocaine; IV sedation with Versed and fentanyl. EBL: Minimal PROCEDURE INDICATION: The patient with low back pain and radiculopathy symptoms unresponsive to conservative treatment. PROCEDURE DESCRIPTION / TECHNIQUE: The patient was seen and identified in the preoperative area. Risks, benefits, complications, and alternatives were discussed with the patient. The patient agreed to proceed with the procedure and signed the consent. IV was started, and vital signs were stable. Patient was taken to the OR and time out was completed. The patient was placed in the prone position on procedure table and a pillow was placed under the abdomen to reduce lumbar lordosis. The lumbosacral area was prepped and draped in the usual sterile fashion. Critical pause was taken. Vital signs were closely monitored during the procedure. Conscious sedation was used during the procedure to decrease patients anxiety. The vertebral body of the lumbar vertebra L3 was squared off by tilting the C-arm cephalad then the C-arm was tilted to the oblique position and the target point was at the 6 o'clock position of the pedicle of then skin and deeper tissues were localized with 1% lidocaine. Subsequently, a 22-gauge 3.5- inch spinal needle was advanced under a tunneled view fluoroscopic guidance just underneath the chin of the Scooter dog at the . Under lateral fluoroscopy, the needle was then advanced to the middle of the upper one third of the foramen between( L3,L4). After negative aspiration of CSF and blood and with no paresthesias, 1 mL of omnipaque contrast dye was injected excellent epidurogram and outlining of the L3 nerve root was identified. Subsequently, 2 mL of block solution containing 10 mg of Decadron and 1 mL of Lidocaine 1% PF was injected. Needle was removed intact . COMPLICATIONS: None COMMENTS: DISPOSITION / PLANS: The patient was placed in a supine position and transferred to the recovery area in a stable condition for observation. There was no evidence of lower extremity motor or sensory deficit after the procedure. Patient was discharged from the recovery room after meeting discharge criteria. Home discharge instructions were given to the patient by the staff.
[2020-11-05] MEDS ORDERED: IV FLUID CONTINUATION 700 ML IV ONE (12:52)
[2020-11-05 13:09] VITALS: BP 102/59; PULSE 69
--- NOTE | 2020-11-05 15:51 | FL ---
Fluoroscopy HISTORY: Pain 8 seconds fluoroscopy time supplied to the referring clinician. 2 intraoperative C-arm images docume nt the procedure. See dictated report from anesthesia.
== END 2020-11-05 13:22 | disposition home or self-care (01) ==
LOC: ORPAIN 12:00
PROVIDERS: ATTEND Anesthesiology
DX: M54.16 Radiculopathy, lumbar region (principal)
CPT/HCPCS: 64483; J2250; J1100; J2001 ×2; J3010; Q9966; 99152

== ENCOUNTER → 2021-01-03 | Outpatient (CLI) | payer BC, MEDICARE ==
[~2021-01-03] MED LIST changes: +DENOSUMAB 60 MG/ML 1 ML SYRINGE SQ NR; -LACTATED RINGERS 1,000 ML IV SCH
[2021-01-03 13:19] VITALS: BP 98/66; PULSE 82; RESP 18; TEMP 97.8
== END ==
LOC: PROCWHC3 12:55
PROVIDERS: ATTEND Family Medicine
DX: M81.0 Age-related osteoporosis without current pathological fracture (principal); Z88.0 Allergy status to penicillin; F17.200 Nicotine dependence, unspecified, uncomplicated
CPT/HCPCS: 96372; J0897